=== PATIENT | female | born 1930 | race Caucasian/White ===

== ENCOUNTER 2017-01-07 10:51 | Emergency (ER) | payer MEDICARE, OTHER ==
[2017-01-07 11:42] LABS: #Eosinphils 0.3 thou/uL (0.0-0.7); #Lymphocytes 1.1 thou/uL (1.20-3.40); #Monocytes 0.5 thou/uL (0.11-0.59); #Neutrophils 4.9 thou/uL (1.40-6.50); %Basophils 0.1 % (0.0-1.0); %Eosinophils 4.2 % (0.0-10.0); %Lymphocytes 16.2 % (21.0-51.0); Hematocrit 41.2 % (36.0-47.0); Mean Platelet Volume 9.6 fL (7.4-10.4); Red Blood Cell (RBC) Count 4.11 mill/uL (4.20-5.40); White Blood Cell (WBC) Count 6.8 thou/uL (4.8-10.8)
--- NOTE | 2017-01-07 12:01 | RAD ---
CHEST 1 VIEW: HISTORY: Emergency exam. COMPARISON: Chest 1 view 11/22/16. FINDINGS: New from the comparison is a linear opacity in the peripheral right mid lung. The remainder of the lungs are clear. This opacity is similar dating back to 11/01/16 examination. There are right axillary surgical clips Mild lateral downsloping right acromion with undersurface r emodeling. IMPRESSION: Linear opacity right mid lung seen on 11/01/16 exam, although not seen on the 11/22/16 exam. This may reflect an area of atelectasis. Scarring is also within the differential. The patient did have an area of pneumonia from back in March 2016 in this area. POS: OFF
[2017-01-07 12:05] LABS: Troponin I Less than 0.010 ng/mL (< 0.028)
[2017-01-07 12:11] LABS: ALT (SGPT) 13 U/L (8-55); AST (SGOT) 24 U/L (5-34); Alkaline Phosphatase 81 U/L (40-150); Anion Gap 15 mmol/L (10-20); BUN (Urea Nitrogen) 20 mg/dL (9.8-20.1); CK (CPK) 42 U/L (29-168); Calc. Creatinine Clearance 0 mL/min (70-130); Calcium 9.6 mg/dL (7.8-10.44); Carbon Dioxide 22 mmol/L (23-31); Chloride 105 mmol/L (98-107); Estimated GFR-MDRD 60; Globulin 3.2 g/dL (2.4-3.5); Protein, Total 7.1 g/dL (6.0-8.3)
== END 2017-01-07 14:35 | disposition home or self-care (01) ==
LOC: ERS 10:51
DX: I95.9 Hypotension, unspecified (principal); I10 Essential (primary) hypertension; I48.91 Unspecified atrial fibrillation; F31.9 Bipolar disorder, unspecified; Z79.899 Other long term (current) drug therapy
CPT/HCPCS: 71010; 80053; 82553; 83880; 84484; 85025; 93005; 94760; 96360; 96361

== ENCOUNTER 2017-03-26 18:47 | Emergency (ER) | payer MEDICARE, OTHER ==
[2017-03-26] MEDS ORDERED: Adacel (T-DAP) 0.5 ML VIAL ONE (20:12)
[2017-03-26] MEDS ORDERED: Acetaminophen 325 MG TAB ONE (20:12)
[2017-03-26] MEDS ORDERED: Lidocaine 1% w/Epinephrine 1:100K 20 ML VIAL ONE (20:14)
[2017-03-26 20:16] LABS: Bilirubin Negative (Negative); Blood, Urine Trace (Negative); Glucose, Urine (Dipstick) Negative (Negative); Ketone, Urine Negative (Negative); Nitrite Positive (Negative); Protein, Urine (Dipstick) 30 mg/dL (Neg-Trace); Urobilinogen 0.2 mg/dL (0.2-1.0)
[2017-03-26 20:17] LABS: Bacteria/HPF 3+ HPF (None Seen); Hyaline Casts/LPF 0-3 HYALINE CAST LPF (0-3 Hyaline); RBC/HPF 0-3 HPF (0-3); Squamous Epithelial 0-3 HPF (0-3)
--- NOTE | 2017-03-26 20:35 | CT ---
CT OF BRAIN PERFORMED WITHOUT CONTRAST ENHANCEMENT: 03/26/17 HISTORY: Fall with head injury. Laceration in right eyebrow region. COMPARISON: 08/05/16 exam. There is mild ventricular and sulcal prominence. There is no signs of intracerebral hemorrhage or ext ra-axial fluid collections. The mastoid air cells and visualized sinuses are clear. A right frontal s calp laceration is noted. IMPRESSION: No acute intracranial abnormalities. POS: [facility]
[2017-03-26] MEDS ORDERED: Bacitracin Zinc 1 Packet ONE (22:09)
== END 2017-03-26 22:16 | disposition home or self-care (01) ==
LOC: ERS 18:47
DX: S01.81XA Laceration without foreign body of other part of head, initial encounter (principal); N39.0 Urinary tract infection, site not specified; F31.9 Bipolar disorder, unspecified; W01.0XXA Fall on same level from slipping, tripping and stumbling without subsequent striking against object, initial encounter
CPT/HCPCS: 12013; 70450; 81003; 81015; 90471; 90715; J2001

== ENCOUNTER 2017-09-02 08:31 | Outpatient (CLI) | payer MEDICARE, OTHER | END 2017-09-02 08:32 | disposition home or self-care (01) | LOC: BICMAMMO 08:31 | PROVIDERS: ATTEND Internal Medicine Hematology & Oncology | DX: C50.111 Malignant neoplasm of central portion of right female breast (principal); M85.859 Other specified disorders of bone density and structure, unspecified thigh; Z85.3 Personal history of malignant neoplasm of breast | CPT/HCPCS: 77066; 77080; G0279 ==

== ENCOUNTER 2017-12-19 19:51 | Emergency (ER) | payer MEDICARE, OTHER ==
[2017-12-19 21:32] LABS: #Eosinphils 0.3 thou/uL (0.0-0.7); #Lymphocytes 1.2 thou/uL (1.20-3.40); #Monocytes 0.5 thou/uL (0.11-0.59); %Basophils 0.2 % (0.0-1.0); %Eosinophils 6.7 % (0.0-10.0); %Lymphocytes 23.8 % (21.0-51.0); %Monocytes 9.5 % (0.0-10.0); %Neutrophils 59.9 % (42.0-75.0); Hemoglobin 12.4 g/dL (12.0-16.0); Mean Corpuscular HGB CONC 33.1 g/dL (32.0-36.0); Mean Corpuscular Hemoglobin 32.5 pg (27.0-31.0); Mean Corpuscular Volume 98.1 fL (78.0-98.0); Mean Platelet Volume 8.6 fL (7.4-10.4); Platelet Count 218 thou/uL (130-400); RBC Distribution Width 11.5 % (11.5-14.5); Red Blood Cell (RBC) Count 3.82 mill/uL (4.20-5.40)
[2017-12-19 21:51] LABS: ALT (SGPT) 20 U/L (8-55); AST (SGOT) 19 U/L (5-34); Albumin 3.8 g/dL (3.4-4.8); Alkaline Phosphatase 75 U/L (40-150); Anion Gap 9 mmol/L (10-20); BUN (Urea Nitrogen) 23 mg/dL (9.8-20.1); Bilirubin, Total 0.6 mg/dL (0.2-1.2); CK (CPK) 61 U/L (29-168); Calc. Creatinine Clearance 0 mL/min (70-130); Calcium 9.3 mg/dL (7.8-10.44); Carbon Dioxide 30 mmol/L (23-31); Chloride 107 mmol/L (98-107); Estimated GFR-MDRD 58; Globulin 2.4 g/dL (2.4-3.5); Glucose 100 mg/dL (83-110); Potassium 4.7 mmol/L (3.5-5.1); Protein, Total 6.2 g/dL (6.0-8.3); Sodium 141 mmol/L (136-145)
[2017-12-19 21:56] LABS: CKMB 1.2 ng/mL (0-6.6); Troponin I Less than 0.010 ng/mL (< 0.028)
[2017-12-19 21:56] LABS: Bilirubin Negative (Negative); Blood, Urine Trace (Negative); Clarity CLEAR (Clear); Glucose, Urine (Dipstick) Negative (Negative); Leukocyte Negative (Negative); Nitrite Negative (Negative); Protein, Urine (Dipstick) Negative (Neg-Trace); Specific Gravity, Urine 1.014 (1.002-1.036); Urobilinogen 0.2 mg/dL (0.2-1.0); pH, Urine 5.5 (5.0-9.0)
[2017-12-19 21:58] LABS: Bacteria/HPF None Seen HPF (None Seen); Hyaline Casts/LPF 0-3 HYALINE CAST LPF (0-3 Hyaline); Pathc Cast-AUWi Flag 0.29 (0-2.49); Squamous Epithelial 0-3 HPF (0-3)
== END 2017-12-19 22:45 | disposition home or self-care (01) ==
LOC: ERS 19:51
DX: R53.81 Other malaise (principal); I10 Essential (primary) hypertension; I48.91 Unspecified atrial fibrillation; F31.9 Bipolar disorder, unspecified; Z79.899 Other long term (current) drug therapy
CPT/HCPCS: 36415; 80053; 81003; 81015; 82550; 82553; 84484; 85025; 87086; 93005

== ENCOUNTER 2018-09-08 09:36 | Outpatient (CLI) | payer MEDICARE, OTHER ==
--- NOTE | 2018-09-08 10:36 | MMO ---
Bilateral MAMMO Bilat Diag DDI+JUDY. CLINICAL HISTORY: Patient is 88 years old and is seen for diagnostic exam. The patient has no family history of breast cancer. The patient has a history of Segmental Mastectomy procedure revealed invasive carcinoma. in the right breast in August,; Re-Excision procedure revealed ductal carcinoma in situ. 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 The patient has a history of right Lumpectomy in August, - malignant, right Ultrasound Guided Core Biopsy in Jul, 2014 and left Excisional Biopsy in ? - benign. VIEWS: The views performed were: bilateral craniocaudal with tomosynthesis; bilateral mediolateral oblique with tomosynthesis; bilateral mediolateral; and right exaggerated craniocaudal. FILMS COMPARED: The present examination has been compared to prior imaging studies performed at [facility] on 12/02/2015, 08/03/2016, 09/02/2017 and 09/08/2018. MAMMOGRAM FINDINGS: There are scattered fibroglandular densities. Finding 1: There are stable post operative changes seen in the right breast. Finding 2: There are stable benign appearing calcifications seen in both breasts. There are also vascular calcifications. Finding 3: There are no mammographic or sonographic abnormalities in the area of palpable concern. The patient is referred back to her clinician. Negative imaging findings should not preclude biopsy if clinical findings are suspicious. IMPRESSION: FINDING 3: THERE ARE NO MAMMOGRAPHIC ABNORMALITIES IN THE AREA OF PALPABLE CONCERN. THE PATIENT IS REFERRED BACK TO HER CLINICIAN. NEGATIVE IMAGING FINDINGS SHOULD NOT PRECLUDE BIOPSY IF CLINICAL FINDINGS ARE SUSPICIOUS. A ROUTINE FOLLOW-UP MAMMOGRAM IN 1 YEAR IS RECOMMENDED. ANY DECISION TO BIOPSY SHOULD BE BASED ON CLINICAL ASSESSMENT. THE RESULTS OF THIS EXAM WERE SENT TO THE PATIENT. ACR BI-RADS Category 2 - Benign finding MAMMOGRAPHY NOTE: 1. A negative mammogram report should not delay a biopsy if a dominant of clinically suspicious mass is present. 2. Approximately 10% to 15% of breast cancers are not detected by mammography. 3. Adenosis and dense breasts may obscure an underlying neoplasm.
--- NOTE | 2018-09-08 11:38 | ULT ---
LIMITED RIGHT BREAST ULTRASOUND: Date: 09/08/18 PROVIDED CLINICAL HISTORY: Right breast palpable abnormality. FINDINGS: Limited sonographic interrogation was performed of the right breast in the region of palpable concern . The sonographic appearance of the breast tissue in this region is normal. IMPRESSION: No mammographic or sonographic abnormalities are present in the region of palpable concern. Negative imaging findings should not preclude further evaluation of a clinically suspicious finding. The patie nt is referred back to her clinician. BI-RADS Category 2 - Benign findings. POS: OFF
== END 2018-09-08 09:37 | disposition home or self-care (01) ==
LOC: BICMAMMO 09:36
PROVIDERS: ATTEND Internal Medicine Hematology & Oncology
DX: C50.111 Malignant neoplasm of central portion of right female breast (principal)
CPT/HCPCS: 76642; 77066; G0279

== ENCOUNTER 2018-09-22 15:24 | Observation (INO) | payer MEDICARE, OTHER ==
[2018-09-22 16:07] LABS: #Eosinphils 0.3 thou/uL (0.0-0.7); #Lymphocytes 1.2 thou/uL (1.20-3.40); #Monocytes 0.7 thou/uL (0.11-0.59); #Neutrophils 5.2 thou/uL (1.40-6.50); %Basophils 0.1 % (0.0-1.0); %Eosinophils 4.3 % (0.0-10.0); %Lymphocytes 16.6 % (21.0-51.0); %Monocytes 8.9 % (0.0-10.0); %Neutrophils 70.1 % (42.0-75.0); Hemoglobin 13.3 g/dL (12.0-16.0); Mean Corpuscular HGB CONC 33.4 g/dL (32.0-36.0); Mean Corpuscular Hemoglobin 32.9 pg (27.0-31.0); Mean Corpuscular Volume 98.7 fL (78.0-98.0); Platelet Count 225 thou/uL (130-400); RBC Distribution Width 11.4 % (11.5-14.5); Red Blood Cell (RBC) Count 4.03 mill/uL (4.20-5.40); White Blood Cell (WBC) Count 7.4 thou/uL (4.8-10.8)
--- NOTE | 2018-09-22 16:19 | RAD ---
EXAM: Single view of the chest HISTORY: Atrial flutter with chest pain COMPARISON: 09/09/2018 FINDINGS: Single view of the chest shows a normal sized cardiomediastinal silhouette. Atelectasis is seen in the mid right lung. There is no evidence of consolidation, mass, or pleural effusion. The bones are unremarkable. IMPRESSION: No evidence of acute cardiopulmonary disease
[2018-09-22 16:29] LABS: ALT (SGPT) 13 U/L (8-55); AST (SGOT) 14 U/L (5-34); Albumin 4.4 g/dL (3.4-4.8); Alkaline Phosphatase 81 U/L (40-150); Anion Gap 13 mmol/L (10-20); BUN (Urea Nitrogen) 20 mg/dL (9.8-20.1); Bilirubin, Total 0.8 mg/dL (0.2-1.2); Calc. Creatinine Clearance 0 mL/min (70-130); Carbon Dioxide 27 mmol/L (23-31); Chloride 102 mmol/L (98-107); Estimated GFR-MDRD 51; Globulin 2.4 g/dL (2.4-3.5); Glucose 121 mg/dL (83-110); Potassium 4.3 mmol/L (3.5-5.1); Protein, Total 6.8 g/dL (6.0-8.3); Sodium 138 mmol/L (136-145)
[2018-09-22 17:59] LABS: Bilirubin Negative (Negative); Blood, Urine Large (Negative); Clarity CLEAR (Clear); Glucose, Urine (Dipstick) Negative (Negative); Leukocyte Trace (Negative); Nitrite Negative (Negative); Protein, Urine (Dipstick) Negative (Neg-Trace); Specific Gravity, Urine 1.007 (1.002-1.036); Urobilinogen 0.2 mg/dL (0.2-1.0)
[2018-09-22 18:02] LABS: Bacteria/HPF None Seen HPF (None Seen); Hyaline Casts/LPF 0-3 HYALINE CAST LPF (0-3 Hyaline); RBC/HPF 0-3 HPF (0-3); Squamous Epithelial None Seen HPF (0-3); WBC/HPF 0-3 HPF (0-3)
--- NOTE | 2018-09-22 18:30 | PDOC.FPRHP ---
- History of Present Illness Chief Complaint: Wobbly History of Present Illness: This is an 88 yo female with a pmh of atrial fibrillation who presents to the ER from the clinic with a cc of feeling wobbly and dizzy. Pt reports she was seen at the clinic be cause she was feeling weak and tired. She reports feeling wobbly and dizzy. She also reports knee pain. She denies SOB but reports when she breaths she feels heavy. She reports she felt palpitations one day this week. She states her symptoms started 2 days ago. Currently she denies dizziness , weakness, SOB, palpitations, or fatigue. ED Course: None - Allergies/Adverse Reactions Allergies Allergy/AdvReac Type Severity Reaction Status Date / Time No Known Drug Allergies Allergy Verified 09/12/15 13:42 - Home Medications Medication Instructions Recorded Confirmed Type Apixaban [Eliquis] 2.5 mg PO BID 09/14/15 09/22/18 History Anastrozole 1 mg PO DAILY 03/21/16 09/22/18 History Rosuvastatin Calcium 10 mg PO HS 03/21/16 09/22/18 History QUEtiapine Fumarate [SEROquel] 50 mg PO DAILY tab 03/22/16 09/22/18 Rx Amiodarone [Cordarone] 400 mg PO BID 09/22/18 09/22/18 History - History PMHx: Afib, HTN, breast cancer PSHx: Lumpectomy right breast, appendectomy, hysterectomy FHx: noncontributory Social: Denies RAMANDEEP - Review of Systems General: reports: fatigue. denies: fever/chills, weight/appetite/sleep changes Eyes: denies: eye pain, vision changes ENT: denies: nasal congestion, rhinorrhea Respiratory: denies: cough, congestion, shortness of breath, exercise intolerance Cardiovascular: reports: palpitation. denies: chest pain, edema Gastrointestinal: denies: nausea, vomiting, diarrhea, constipation, abdominal pain Genitourinary: denies: incontinence, dysuria Skin: denies: rashes, lesions Musculoskeletal: denies: pain, tenderness Neurological: reports: weakness (generalized and wobbly). denies: numbness, syncope, seizure Psychological: denies: anxiety, depression - Vital signs BP: 106/75 HR: 78 RR: 20 Tmax: 98.4 Pox: 98% on ra Wt: 78 kg - Physical Exam Constitutional: NAD, awake, alert and oriented, well developed HEENT: normocephalic and atraumatic, PERRLA, EOMI, TM's clear and intact, MMM Neck: supple, trachea midline, no JVD Chest: no-tender to palpation, no lesions Heart: normal S1/S2, pulses present, other (Regular rate, irregular rhythm) Lungs: CTAB, no respiratory distress, good air movement, no rales/rhonchi Abdomen: soft, non-tender, bowel sounds present, no masses/distention Musculoskeletal: normal structure, normal tone, ROM grossly normal Neurological: no focal deficit, CN II-XII intact Skin: capillary refill <2 seconds, no jaundice Heme/Lymphatic: no unusual bruising or bleeding Psychiatric: normal mood and affect, intact recent and remote memory FMR H&P: Results - Labs Result Diagrams: 09/22/18 16:00 09/22/18 16:00 Lab results: WBC 7.4 thou/uL (4.8-10.8) 09/22/18 16:00 Hgb 13.3 g/dL (12.0-16.0) 09/22/18 16:00 Hct 39.8 % (36.0-47.0) 09/22/18 16:00 MCV 98.7 fL (78.0-98.0) H 09/22/18 16:00 Plt Count 225 thou/uL (130-400) 09/22/18 16:00 Neutrophils % 70.1 % (42.0-75.0) 09/22/18 16:00 Sodium 138 mmol/L (136-145) 09/22/18 16:00 Potassium 4.3 mmol/L (3.5-5.1) 09/22/18 16:00 Chloride 102 mmol/L (98-107) 09/22/18 16:00 Carbon Dioxide 27 mmol/L (23-31) 09/22/18 16:00 BUN 20 mg/dL (9.8-20.1) 09/22/18 16:00 Creatinine 1.02 mg/dL (0.6-1.1) 09/22/18 16:00 Glucose 121 mg/dL (83-110) H 09/22/18 16:00 Calcium 10.0 mg/dL (7.8-10.44) 09/22/18 16:00 Total Bilirubin 0.8 mg/dL (0.2-1.2) 09/22/18 16:00 AST 14 U/L (5-34) 09/22/18 16:00 ALT 13 U/L (8-55) 09/22/18 16:00 Alkaline Phosphatase 81 U/L (40-150) 09/22/18 16:00 B-Natriuretic Peptide 133.4 pg/mL (0-100) H 09/22/18 16:00 Serum Total Protein 6.8 g/dL (6.0-8.3) 09/22/18 16:00 Albumin 4.4 g/dL (3.4-4.8) 09/22/18 16:00 Urine Ketones Negative mg/dL (Negative) 09/22/18 17:35 Urine Blood Large (Negative) H 09/22/18 17:35 Urine Nitrite Negative (Negative) 09/22/18 17:35 Ur Leukocyte Esterase Trace (Negative) H 09/22/18 17:35 Urine RBC 0-3 HPF (0-3) 09/22/18 17:35 Urine WBC 0-3 HPF (0-3) 09/22/18 17:35 Ur Squamous Epith Cells None Seen HPF (0-3) 09/22/18 17:35 Urine Bacteria None Seen HPF (None Seen) 09/22/18 17:35 - EKG Interpretation EKG: Afib at 92 bpm, - Radiology Interpretation Chest x-ray Status: report reviewed by me (No acute cardio pulmonary disease) FMR H&P: A/P - Problem List (1) CKD (chronic kidney disease) stage 3, GFR 30-59 ml/min Current Visit: Yes Status: Acute Code(s): N18.3 - CHRONIC KIDNEY DISEASE, STAGE 3 (MODERATE) (2) Atrial fibrillation Current Visit: No Status: Acute Code(s): I48.91 - UNSPECIFIED ATRIAL FIBRILLATION Qualifiers: Atrial fibrillation type: chronic Qualified Code(s): I48.2 - Chronic atrial fibrillation (3) Bipolar disorder Current Visit: No Status: Chronic Code(s): F31.9 - BIPOLAR DISORDER, UNSPECIFIED Qualifiers: Active/Remission status: in remission of unspecified degree Qualified Code( s): F31.70 - Bipolar disorder, currently in remission, most recent episode unspecified (4) Hyperlipidemia Current Visit: No Status: Chronic Code(s): E78.5 - HYPERLIPIDEMIA, UNSPECIFIED Qualifiers: Hyperlipidemia type: unspecified Qualified Code(s): E78.5 - Hyperlipidemia , unspecified - Plan This is a 88 yo female with a pmh of Bipolar disorder, HTN, HLD, afib, HFpEF Weakness/wobbly likely 2/2 atrial fibrilation vs. aflutter -Admit to tele obs -Clinic reports EKG showing atrial flutter with variable AV conduction block and a rate of 98, ER EKG shows afib with a rate of 92 -Dr. Dominguez has been consulted, will appreciate recommendations -Continue home amiodarone and eliquis -S/P IMELDA with cardioconversion on 09/11/18 HFpEF -Echo on 09/09/18 shows LVEF of 60-65% with filling defect CKD 3 -Appears baseline, cr of 0.94 in June Bipolar -Continue home seroquel HLD -Continue home rosuvastatin Code: Full Prophylaxis: [place] Family: None at bedside Diet: HH Fluids: SL Disposition: DC in 1-2 days PCP: Dr. Chavez, [facility] FMR H&P: Upper Level - Pertinent history 88F with history of afib presents with 2-3 days of palpitation. She was hospitalized this month, found to be in a fib, had both chemical and electrical cardioversion and dc home with amiodarone and elliquis. She developed palpitation 2-3 days ago. There was no known inciting event and she endorse taking all her medication appropriately. Associated with fatigue, loss of balance, and sensation of heaviness in chest. She was evaluated today in her PCP 's office and found to be in atrial flutter. Currently in ER, she is found to be in atrial fib on EKG, rate controlled. She endorse continue symptomatic palpitations. Gen: Alert, oriented HEENT: Diminished hearing, vision grossly intact, normocephalic, midline trachea CV: Irregular rhythm. No m/g/r heard Resp: CTA bilat GI: Soft, normoactive, not tender to palpation Ext: No pitting edema Neuro: AOx3, no focal deficit 1. Atrial Fibrillation, rate controlled - Etiology likely due to age. Recent echo shows appropriate EF, mild atrial dilation. TSH was normal range. Trop negative. BNP low indeterminate value. - Recurred despite amiodarone and cardioversion. - Will consult Cardiology, followed by likely EP consult. Continue amiodarone and elliquis. - In future, if RVR develop, will consider starting on dilt drip. 2. HLD - Chronic issue. Continue crestor. 3. Hx of rt breast cancer - Known issue. Continue anastrozole. 4. Bipolar, NOS - Known chronic disorder. Continue home seroquel. 5. CKD 3 - At baseline. - Plan Date/Time: 09/22/181822 I, [Elbert Coleman], have evaluated this patient and agree with findings/plan as outlined by chemistry intern resident. Pertinent changes/additions are listed here. Addendum - Attending - Attending Attestation Date/Time: 09/22/182239 I personally evaluated the patient and discussed the management with Dr. Marquez /[place]. I agree with the History, Examination, Assessment and Plan documented above with any addition or exceptions noted below. Patient with recent diagnosis of Afib here with increasing weakness generalized and feelings of palpitations. She had cardioversion and was placed on Amiodarone. On exam, no major abnormalities. EKG shows rate controlled afib. Labs do not reveal ACS or current concern for CHF or demand ischemia. Patient will be admitted for Afib and weakness. Will discuss case with cardiology in AM whether she would benefit from pacemaker with beta blockade or beta blockade alone. Continue OAC. PT as needed. Continue current chronic meds for chronic conditions. Guadalupe Andrew MD, MS
[2018-09-22 19:20] LABS: Troponin I Less than 0.010 ng/mL (< 0.028)
[2018-09-22] MEDS ORDERED: Acetaminophen 650 MG Suppository PR PRN (21:15)
[2018-09-22] MEDS ORDERED: Acetaminophen 325 MG TAB PO PRN (21:15)
[2018-09-22] MEDS ORDERED: Ondansetron PF 4 MG/2 ML Vial IVP PRN (21:15)
[2018-09-22] MEDS ORDERED: Ondansetron ODT 4 MG TAB PO PRN (21:15)
[2018-09-22] MEDS ORDERED: Apixaban 2.5 MG TAB PO SCH (21:30)
[2018-09-22] MEDS ORDERED: Rosuvastatin 10 MG TAB PO SCH (21:30)
[2018-09-22 21:43] LABS: INR-International Normal Ratio 1.2; PTT 30.3 SEC (22.9-36.1); Prothrombin Time 14.8 SEC (12.0-14.7)
[2018-09-22 22:31] LABS: Troponin I Less than 0.010 ng/mL (< 0.028)
[2018-09-23 03:41] LABS: #Basophils 0.1 thou/uL (0.0-0.2); #Eosinphils 0.5 thou/uL (0.0-0.7); #Lymphocytes 1.4 thou/uL (1.20-3.40); #Monocytes 0.6 thou/uL (0.11-0.59); #Neutrophils 4.9 thou/uL (1.40-6.50); %Basophils 0.7 % (0.0-1.0); %Eosinophils 6.4 % (0.0-10.0); %Lymphocytes 19.1 % (21.0-51.0); %Monocytes 8.6 % (0.0-10.0); %Neutrophils 65.3 % (42.0-75.0); Hemoglobin 12.5 g/dL (12.0-16.0); Mean Corpuscular HGB CONC 34.2 g/dL (32.0-36.0); Mean Corpuscular Hemoglobin 33.6 pg (27.0-31.0); Mean Corpuscular Volume 98.3 fL (78.0-98.0); Mean Platelet Volume 9.1 fL (7.4-10.4); Platelet Count 204 thou/uL (130-400); RBC Distribution Width 11.4 % (11.5-14.5); Red Blood Cell (RBC) Count 3.71 mill/uL (4.20-5.40); White Blood Cell (WBC) Count 7.5 thou/uL (4.8-10.8)
--- NOTE | 2018-09-23 06:33 | PDOC.FM ---
- Subjective Subjective: NAEO. Patient is resting comfortably in bed. Patient denies any chest pain or palpitations. Denies feeling wobbly or dizzy. Patient is feeling anxious about her condition and if she will need another procedure. - Objective MAR Reviewed: Yes Vital Signs & Weight: Vital Signs (12 hours) Temp Pulse Resp BP Pulse Ox 09/22/18 22:40 98.4 F 81 19 147/76 H 97 Result Diagrams: 09/23/18 03:28 09/22/18 16:00 Phys Exam - Physical Examination Constitutional: NAD elderly female HEENT: PERRLA, moist MMs Neck: supple, full ROM Respiratory: clear to auscultation bilateral irregularly irregular Gastrointestinal: soft, non-tender, no distention Musculoskeletal: pulses present Neurological: non-focal, moves all 4 limbs Psychiatric: normal affect, A&O x 3 Skin: no rash, normal turgor, cap refill <2 seconds Dx/Plan (1) CKD (chronic kidney disease) stage 3, GFR 30-59 ml/min Code(s): N18.3 - CHRONIC KIDNEY DISEASE, STAGE 3 (MODERATE) Status: Acute (2) Atrial fibrillation Code(s): I48.91 - UNSPECIFIED ATRIAL FIBRILLATION Status: Acute Qualifiers: Atrial fibrillation type: chronic Qualified Code(s): I48.2 - Chronic atrial fibrillation (3) Bipolar disorder Code(s): F31.9 - BIPOLAR DISORDER, UNSPECIFIED Status: Chronic Qualifiers: Active/Remission status: in remission of unspecified degree Qualified Code( s): F31.70 - Bipolar disorder, currently in remission, most recent episode unspecified (4) Hyperlipidemia Code(s): E78.5 - HYPERLIPIDEMIA, UNSPECIFIED Status: Chronic Qualifiers: Hyperlipidemia type: unspecified Qualified Code(s): E78.5 - Hyperlipidemia , unspecified - Plan Plan: This is a 88 yo female with a pmh of Bipolar disorder, HTN, HLD, afib, HFpEF Atrial fibrillation, rate controlled Clinic reports EKG showing atrial flutter with variable AV conduction block and a rate of 98, ER EKG shows afib with a rate of 92. Patient s/p IMELDA w/ cardioversion on 09/11/18. - Dr. Dominguez has been consulted, will appreciate recommendations. Will likely need to consult EP due to continued afib. - Continue home amiodarone and eliquis HFpEF - Echo on 09/09/18 shows LVEF of 60-65% with filling defect - No signs/symptoms of fluid overload. CXR showing no acute process. CKD 3 - Appears baseline, Cr of 0.94 in June - Continue to monitor Bipolar - Continue home Seroquel, stable. HLD - Continue home Rosuvastatin Code: Full Prophylaxis: Eliquis Family: None at bedside Diet: HH Fluids: SL Disposition: DC in 1-2 days PCP: TANA Gomez Addendum - Attending - Attending Attestation Date/Time: 09/23/18 1201 I personally evaluated the patient and discussed the management with Dr. Rosas. I agree with the History, Examination, Assessment and Plan documented above with any addition or exceptions noted below.
[2018-09-23] MEDS ORDERED: Apixaban 2.5 MG TAB PO SCH (09:00)
[2018-09-23 12:24] VITALS: BMI 27.5
[2018-09-23] MEDS: Anastrozole 1 MG TAB PO SCH (13:21)
[2018-09-23] MEDS: Amiodarone 200 MG TAB PO SCH ×2 (13:22→20:48)
[2018-09-23] MEDS ORDERED: Apixaban 5 MG TAB PO SCH (14:45)
--- NOTE | 2018-09-23 15:43 | CON ---
DATE OF CONSULTATION: HISTORY OF PRESENT ILLNESS: The patient is a pleasant 88-year-old woman with a history of atrial fibrillation, who presents with weakness. The patient has previously had atrial fibrillation. She has been treated with flecainide for several years. The patient presents once again. The patient was recently admitted a week ago with atrial fibrillation. She underwent IMELDA/cardioversion. The patient presents once again with increasing weakness. She denies having any palpitations. PAST MEDICAL HISTORY: Significant for; 1. Atrial fibrillation. 2. Hypertension. 3. Bipolar disorder. 4. Breast carcinoma. PAST SURGICAL HISTORY: 1. Breast surgery. 2. Cholecystectomy. 3. Appendectomy. 4. Tonsillectomy. 5. Hysterectomy. SOCIAL HISTORY: Nonsmoker. FAMILY HISTORY: No strong family history of heart disease. MEDICATIONS ON ADMISSION: Included; 1. Amiodarone 400 b.i.d. 2. Crestor 10 nightly. 3. Eliquis 2.5 b.i.d. 4. Seroquel 50 daily. REVIEW OF SYSTEMS: A 10-point system otherwise unremarkable. No history of easy bruising or bleeding. PHYSICAL EXAMINATION: GENERAL: Obese woman, in no acute distress. VITAL SIGNS: Blood pressure 122/61. NECK: No jugular venous distention. LUNGS: Clear to auscultation. HEART: Regular rate and rhythm. Normal S1 and S2. No murmurs. ABDOMEN: Nondistended. EXTREMITIES: No edema. VASCULAR: Radial pulses are 2+. LABORATORY DATA: Sodium 138, potassium 4.3, chloride 102, bicarbonate 27, BUN 20, creatinine 1.0, and glucose 121. Troponin less than 0.01. Her white blood cell count 7.5, hemoglobin 12.5, hematocrit 36.5, and platelets were 204. Her EKG revealed her to have atrial fibrillation with a slow ventricular response. IMPRESSION: 1. Paroxysmal atrial fibrillation. 2. Hypertension. 3. Breast carcinoma. This patient presents with recurrent atrial fibrillation. We would recommend repeat IMELDA cardioversion. The risks have been explained to the patient, who wishes to proceed. PLAN: Repeat cardioversion. Job ID: [id number]
[2018-09-23] MEDS: Apixaban 5 MG TAB PO SCH (20:48)
[2018-09-23] MEDS ORDERED: Rosuvastatin 10 MG TAB PO SCH (21:00)
--- NOTE | 2018-09-24 06:31 | PDOC.FM ---
- Subjective Subjective: NAEO. Per nursing patient did well overnight, no issues. Patient remained rate controlled, afib overnight. Patient was taken back this morning for cardioversion. Dr. Dominguez states that the cardioversion went well this morning with no complications. Patient was still not back in her room during rounds and we were therefore unable to ask any questions to the patient. - Objective MAR Reviewed: Yes Vital Signs & Weight: Vital Signs (12 hours) Temp Pulse Resp BP Pulse Ox 09/24/18 03:56 98.4 F 70 17 123/66 95 09/23/18 19:29 98.4 F 70 16 117/63 93 L Weight Weight 77.337 kg I&O: 09/22/18 09/23/18 09/24/18 06:59 06:59 06:59 Intake Total 1270 Output Total 1500 Balance -230 Result Diagrams: 09/23/18 03:28 09/22/18 16:00 Phys Exam - Physical Examination irregularly, irregular Dx/Plan (1) CKD (chronic kidney disease) stage 3, GFR 30-59 ml/min Code(s): N18.3 - CHRONIC KIDNEY DISEASE, STAGE 3 (MODERATE) Status: Acute (2) Atrial fibrillation Code(s): I48.91 - UNSPECIFIED ATRIAL FIBRILLATION Status: Acute Qualifiers: Atrial fibrillation type: chronic Qualified Code(s): I48.2 - Chronic atrial fibrillation (3) Bipolar disorder Code(s): F31.9 - BIPOLAR DISORDER, UNSPECIFIED Status: Chronic Qualifiers: Active/Remission status: in remission of unspecified degree Qualified Code( s): F31.70 - Bipolar disorder, currently in remission, most recent episode unspecified (4) Hyperlipidemia Code(s): E78.5 - HYPERLIPIDEMIA, UNSPECIFIED Status: Chronic Qualifiers: Hyperlipidemia type: unspecified Qualified Code(s): E78.5 - Hyperlipidemia , unspecified - Plan Plan: This is a 88 yo female with a pmh of Bipolar disorder, HTN, HLD, afib, HFpEF Atrial fibrillation, rate controlled Clinic reports EKG showing atrial flutter with variable AV conduction block and a rate of 98, ER EKG shows afib with a rate of 92. Patient s/p IMELDA w/ cardioversion on 09/11/18. - Dr. Dominguez has been consulted, appreciate recommendations. IMELDA w/ cardioversion today. Cards states procedure went home. Possibly home later today if patient in NSR and doing well. - Continue home amiodarone and eliquis HFpEF - Echo on 09/09/18 shows LVEF of 60-65% with filling defect - No signs/symptoms of fluid overload. CXR showing no acute process. CKD 3 - Appears baseline, Cr of 0.94 in June - Continue to monitor Bipolar - Continue home Seroquel, stable. HLD - Continue home Rosuvastatin Code: Full Prophylaxis: Eliquis Family: None at bedside Diet: HH Fluids: SL Disposition: cardioversion today, dc pending clinical course PCP: TANA oGmez Addendum - Attending - Attending Attestation Date/Time: 09/24/18 1220 I personally evaluated the patient and discussed the management with Dr. Rosas. I agree with the History, Examination, Assessment and Plan documented above with any addition or exceptions noted below.
[2018-09-24] MEDS ORDERED: PROPOFOL 20 ML ONE (08:12)
--- NOTE | 2018-09-24 10:42 | OP ---
DATE OF PROCEDURE: 09/24/2018 PROCEDURE PERFORMED: Transesophageal echocardiogram. INDICATION: An 88-year-old woman with paroxysmal atrial fibrillation on transesophageal echocardiogram. DESCRIPTION OF PROCEDURE: The patient was taken to the PACU. The patient was sedated by Anesthesiology. A transesophageal probe was placed into the distal esophagus and stomach. Echocardiographic images were obtained. The transesophageal probe was removed. FINDINGS: 1. Normal left ventricular systolic function. 2. Biatrial enlargement. 3. Mild mitral valve prolapse. 4. Wcmxjoqe-gr-zybikm mitral regurgitation. 5. Ojpt-mr-gstxeoqu tricuspid regurgitation. 6. Trivial aortic regurgitation. 7. No thrombus noted in the left atrium, left atrial appendage. 8. Atherosclerotic debris in the descending aorta. IMPRESSION: No formed thrombus in the left atrium and left atrial appendage. Job ID: [id number]
--- NOTE | 2018-09-24 10:42 | OP ---
DATE OF PROCEDURE: 09/24/2018 PROCEDURE PERFORMED: Electrocardioversion. INDICATION FOR PROCEDURE: An 88-year-old woman with paroxysmal atrial fibrillation. DESCRIPTION OF PROCEDURE: The patient was taken to the PACU. The patient was sedated by Anesthesiology. The patient was shocked with 200 joules of synchronized electricity. The patient converted to normal sinus rhythm. IMPRESSION: Successful electrocardioversion. Job ID: [id number]
[2018-09-24] MEDS: Amiodarone 200 MG TAB PO SCH (10:47)
[2018-09-24] MEDS: Apixaban 5 MG TAB PO SCH (10:47)
[2018-09-24] MEDS: Anastrozole 1 MG TAB PO SCH (10:47)
[2018-09-24 16:19] VITALS: BP 119/56; TEMP 98.1
--- NOTE | 2018-09-25 05:41 | DIS ---
DATE OF ADMISSION: 09/22/2018 DATE OF DISCHARGE: 09/24/2018 RESIDENT: Taryn Rosas MD ADMITTING ATTENDING: DR. MARCELO ODONNELL DISCHARGE ATTENDING: DR. KALIE LIMON CONSULTS: Cardiology, Dr. Dominguez and Walking Program. PROCEDURES: Transesophageal echocardiogram with cardioversion on 09/24/2018. PRIMARY DIAGNOSIS: Paroxysmal atrial fibrillation. SECONDARY DIAGNOSES: Heart failure with preserved ejection fraction, CKD stage 3, bipolar, hyperlipidemia. DISCHARGE MEDICATIONS: 1. Eliquis 2.5 mg oral twice a day. 2. Anastrozole 1 mg oral daily. 3. Rosuvastatin 10 mg oral at bedtime. 4. Seroquel 50 mg oral daily. 5. Amiodarone 400 mg oral twice daily. DISCONTINUED MEDICATIONS: None. HISTORY OF PRESENT ILLNESS/HOSPITAL COURSE: This is an 88-year-old female with past medical history of atrial fibrillation, who presented to the ER from her [facility] with a chief complaint of feeling wobbly and dizzy. The patient was recently discharged on 09/15/2018 after being found in atrial fibrillation and had a cardioversion on 09/11/2018. The patient reports that she was seen at the clinic because she was feeling weak and tired. The patient denied any shortness of breath, but reported that she did have some palpitations earlier in the week. The patient stated that her symptoms had began 2 days prior. In the ER, Cardiology was consulted. She was found to be in atrial fibrillation with a heart rate in the 70s to 90s. Otherwise, the patient was vitally stable. A chest x-ray was performed that showed no acute process. The patient was admitted to telemetry for further workup of her atrial fibrillation. On 09/24/2018, the patient went for IMELDA with cardioversion by Dr. Dominguez. The procedure was successful and she converted back to normal sinus rhythm. The patient had no medication changes upon discharge. DISPOSITION: Stable. DISCHARGE INSTRUCTIONS: 1. Location: Home. 2. Diet: Heart healthy. 3. Activity: Ad yamilet with fall precautions. 4. Followup: With PCP at [facility] within 1 week and follow up with Dr. Dominguez within 2 weeks. Job ID: [id number] MTDD
--- NOTE | 2018-09-26 14:04 | EKG ---
Test Reason : Blood Pressure : / mmHG Vent. Rate : 092 BPM Atrial Rate : 220 BPM P-R Int : 000 ms QRS Dur : 080 ms QT Int : 372 ms P-R-T Axes : 000 029 043 degrees QTc Int : 460 ms Atrial fibrillation with a competing junctional pacemaker Abnormal ECG Confirmed by TALON RUVALCAAB DO ([id number]), associate editor DELIO SEVILLA ([id number]) on 09/26/2018 2:04:13 PM Referred By: Confirmed By:TALON RUVALCABA DO
== END 2018-09-24 17:36 | disposition home or self-care (01) ==
LOC: ERS 15:24 → ERHOLD 18:14 → 2SW 09-23 12:10
PROVIDERS: ADMIT Student in an Organized Health Care Education/Training Program; ATTEND Student in an Organized Health Care Education/Training Program
PROC: B24BZZ4 Ultrasonography of Heart with Aorta, Transesophageal (ICD-10-PCS; principal; 2018-09-24)
PROC: 5A2204Z Restoration of Cardiac Rhythm, Single (ICD-10-PCS; 2018-09-24)
DX: I48.2 Chronic atrial fibrillation (principal); I13.0 Hypertensive heart and chronic kidney disease with heart failure and stage 1 through stage 4 chronic kidney disease, or unspecified chronic kidney disease; N18.3 Chronic kidney disease, stage 3 (moderate); I50.30 Unspecified diastolic (congestive) heart failure; F31.70 Bipolar disorder, currently in remission, most recent episode unspecified; E78.5 Hyperlipidemia, unspecified; I70.0 Atherosclerosis of aorta; I08.3 Combined rheumatic disorders of mitral, aortic and tricuspid valves; Z85.3 Personal history of malignant neoplasm of breast; Z79.01 Long term (current) use of anticoagulants; Z79.811 Long term (current) use of aromatase inhibitors; Z79.899 Other long term (current) drug therapy; Z90.11 Acquired absence of right breast and nipple
CPT/HCPCS: 71045; 80053; 83880; 84484 ×2; 85025 ×2; 85610; 85730; 92960; 93005; 93312; 97139 ×2; 99285; G0378 ×2; 36415; 81003; 81015; J2704

== ENCOUNTER 2018-10-03 21:44 | Observation (INO) | payer MEDICARE, OTHER ==
[~2018-10-03 21:44] MED LIST: ISOVUE-370 76%-LOCM 1 ML ONE
[2018-10-03 22:15] LABS: Bacteria/HPF 1+ HPF (None Seen); Bilirubin Negative (Negative); Blood, Urine 3+ (Negative); Clarity Turbid (Clear); Glucose, Urine (Dipstick) Normal (Negative); Leukocyte 25 Leu/uL (Negative); Nitrite Negative (Negative); Protein, Urine (Dipstick) 50 mg/dL (Neg-Trace); RBC/HPF Greater than 50 HPF (0-3); Squamous Epithelial 0-3 HPF (0-3); Urobilinogen Normal mg/dL (Less than 2); WBC/HPF Greater than 50 HPF (0-3)
[2018-10-03 22:27] LABS: #Eosinphils 0.3 thou/uL (0.0-0.7); #Lymphocytes 1.2 thou/uL (1.20-3.40); #Monocytes 0.7 thou/uL (0.11-0.59); #Neutrophils 5.4 thou/uL (1.40-6.50); %Basophils 0.4 % (0.0-1.0); %Eosinophils 3.7 % (0.0-10.0); %Lymphocytes 16.4 % (21.0-51.0); %Monocytes 8.6 % (0.0-10.0); %Neutrophils 70.9 % (42.0-75.0); Hemoglobin 12.3 g/dL (12.0-16.0); Mean Corpuscular HGB CONC 33.6 g/dL (32.0-36.0); Mean Corpuscular Hemoglobin 33.1 pg (27.0-31.0); Mean Corpuscular Volume 98.5 fL (78.0-98.0); Mean Platelet Volume 9.2 fL (7.4-10.4); Platelet Count 210 thou/uL (130-400); RBC Distribution Width 11.9 % (11.5-14.5); Red Blood Cell (RBC) Count 3.73 mill/uL (4.20-5.40); White Blood Cell (WBC) Count 7.6 thou/uL (4.8-10.8)
[2018-10-03 22:48] LABS: ALT (SGPT) 14 U/L (8-55); AST (SGOT) 16 U/L (5-34); Albumin 4.2 g/dL (3.4-4.8); Alkaline Phosphatase 70 U/L (40-150); Anion Gap 14 mmol/L (10-20); BUN (Urea Nitrogen) 19 mg/dL (9.8-20.1); Bilirubin, Total 0.6 mg/dL (0.2-1.2); CK (CPK) 103 U/L (29-168); Calc. Creatinine Clearance 0 mL/min (70-130); Calcium 9.2 mg/dL (7.8-10.44); Carbon Dioxide 24 mmol/L (23-31); Chloride 106 mmol/L (98-107); Estimated GFR-MDRD 46; Globulin 2.2 g/dL (2.4-3.5); Glucose 133 mg/dL (83-110); Potassium 4.1 mmol/L (3.5-5.1); Protein, Total 6.4 g/dL (6.0-8.3); Sodium 140 mmol/L (136-145)
--- NOTE | 2018-10-03 23:26 | CT ---
EXAM: CT ABDOMEN AND PELVIS HISTORY: Abdominal pain. COMPARISON: 04/07/2015 Procedure: Multiple contiguous axial images were obtained and a CT of the abdomen and pelvis with IV contrast. C oronal reformats were performed. FINDINGS: Lower Chest: within normal limits. Vessels: Normal caliber aorta. Heart: Calcification of the mitral annulus. Upper normal cardiac silhouette. Abdomen: Portal vein:Patent Gallbladder: Surgically absent. Liver: No enhancing .mass. Two separate cysts in the hepatic parenchyma are redemonstrated. Largest c yst is in the right hepatic lobe measuring 4.2 x 4.8 cm. Cyst in the left hepatic lobe measures 1.3 x 1.8 cm. Pancreas: within normal limits. Spleen: within normal limits. Adrenals: within normal limits. Kidneys: Symmetric enhancement. No obstructive uropathy. 1.2 cm hypodensity emanating from the upper pole the right kidney, which is increased since the previous examination. Bilaterally no obstructive uropathy. Punctate 1 mm calculus in the right intrarenal collecting system. Peritoneum: No ascites or free air, no fluid collection. Bowel: Limited evaluation due to technique. No evidence of small bowel obstruction. Ileocecal junctio n is normal. Scattered fecal material in a nondistended, nondilated colon. Diverticulosis in the sigmoid colon, without evidence of diverticulitis. Appendix is not appreciated. No inflammation of th e cecal apex. Mesentery and Retroperitoneum: No enlarged mesenteric or retroperitoneal lymph nodes. Abdominal Wall: within normal limits. Pelvis: Reproductive Organs: Surgically absent uterus. Pelvis: within normal limits. Bladder: Markedly distended urinary bladder with small diverticula scattered throughout the urinary b ladder. The large diverticulum appears to involve the posterior right aspect of the urinary bladder. Bones: No lytic or blastic lesions. Degenerative changes are identified. IMPRESSION: 1. Diverticulosis in the sigmoid colon. No diverticulitis. 2. Markedly distended urinary bladder with evidence of multiple bladder diverticula. Post void residu al urinary bladder ultrasound may be beneficial. 3. Hepatic cysts. 4. Probable slightly complex cyst emanating from the upper pole the right kidney. Transcribed Date/Time: 10/03/2018 11:32 PM
[2018-10-04] MEDS ORDERED: cefTRIAXone\\ROCEPHIN 2 GM VIAL ONE (01:30)
[2018-10-04] MEDS ORDERED: Acetaminophen 325 MG TAB PO PRN (04:16)
[2018-10-04] MEDS ORDERED: Ondansetron ODT 4 MG TAB SL PRN (04:16)
[2018-10-04] MEDS ORDERED: Ondansetron PF 4 MG/2 ML Vial IVP PRN (04:16)
[2018-10-04] MEDS ORDERED: Sodium Chloride 0.9% 1,000 ML IV SCH ×2 (04:16→10:04)
[2018-10-04] MEDS ORDERED: Acetaminophen 325 MG TAB ONE (05:34)
[2018-10-04 08:59] VITALS: BMI 28.6
[2018-10-04] MEDS ORDERED: Famotidine 20 MG TAB PO SCH (09:00)
[2018-10-04] MEDS: Amiodarone 200 MG TAB PO SCH ×2 (11:22→23:10)
[2018-10-04] MEDS: Apixaban 2.5 MG TAB PO SCH ×2 (11:22→23:09)
--- NOTE | 2018-10-04 13:01 | HP ---
CHIEF COMPLAINT: Dysuria, dark urine, and generalized weakness. HISTORY OF PRESENT ILLNESS: The patient is an 88-year-old female from [place], who was brought to the emergency room after she found that her urine was very dark and just in the last day or 2. She had dysuria along with generalized weakness, which was going on for a few days. She denied any fever. No chest pain or shortness of breath. Apparently, she was started on amiodarone for atrial fibrillation by Dr. Dominguez recently, her reinforcement maker. She came to the emergency room, was found to have most likely UTI/cystitis with some generalized weakness and the decision was made about IV hydration and antibiotic IV to be started and continued with the observation admission. PAST MEDICAL HISTORY: Positive for, 1. Atrial fibrillation. 2. CKD. 3. Diabetes insipidus. 4. Hyperlipidemia. 5. Hypertension. 6. Bipolar. 7. Frequent UTIs. 8. Urinary retention. 9. Right breast cancer. PAST SURGICAL HISTORY: 1. Right breast lumpectomy. 2. Appendectomy. 3. Cholecystectomy. 4. Tonsillectomy. 5. Exploratory laparotomy for GI lesions. 6. Hysterectomy. FAMILY HISTORY: Mother had CHF, and there was a kidney cancer in her family. SOCIAL HISTORY: She does not have any history of alcohol intake, cigarette smoking, or illicit drug use. MEDICATIONS: 1. Amiodarone 200 mg twice a day. 2. Quetiapine 50 mg daily. 3. Crestor 10 mg daily at bedtime. 4. Anastrozole 1 mg once a day. 5. Eliquis 2.5 mg twice a day. 6. Stool softener 240 mg once a day. REVIEW OF SYSTEMS: All systems were reviewed and they are negative, except for symptoms mentioned in HPI. PHYSICAL EXAMINATION: VITAL SIGNS: Blood pressure is 125/66, pulse is 84, respirations are 16, temperature is 98.5. The temperature at the time of first vitals was up to 99.2. HEENT: Head is atraumatic and normocephalic. Eyes are PERRLA. Sclerae are nonicteric. Oral mucosa is somewhat dry. NECK: Supple. LUNGS: Clear. HEART: S1 and S2. Irregularly irregular. No S3. No S4. ABDOMEN: Soft and nontender. Bowel sounds are present. No organomegaly. EXTREMITIES: No clubbing, cyanosis, or edema. NEUROLOGICAL: She follows my commands. She moves all 4 extremities. There is no any motor or sensory deficits present. Cranial nerves are intact. LABORATORY DATA: Labs showed white count of 7.6, hemoglobin 12.3, hematocrit 36.7, platelet count is 210. Normal electrolytes. BUN of 19, creatinine 1.11, glucose 133, globulin 2.2. Urine showed clarity turbid, 50 of proteins, 3+ blood, negative nitrites, negative leukocyte esterases, RBCs greater than 50, and WBCs greater than 50, 1+ bacteria. IMAGING STUDIES: CT of the abdomen and pelvis showed diverticulosis in the sigmoid colon, no diverticulitis, along with markedly distended urinary bladder with evidence of multiple bladder diverticula. Also, there was evidence of hepatic cyst and probably slightly complex cyst emanating from the upper pole of the right kidney. IMPRESSION: 1. Most likely cystitis. We are waiting for electrocardiogram to be done, but she is in somewhat irregular rhythm. Electrocardiogram was just done and it shows atrial fibrillation with a ventricular rate of 71 beats per minute. 2. Chronic renal insufficiency, stage 2. 3. Bipolar disorder. 4. Generalized weakness most likely related to current infection. 5. History of diabetes insipidus. 6. Hypertension. 7. Hyperlipidemia. 8. Frequent urinary tract infections and urinary retention. Apparently, the patient refused to do self-catheterization, which was recommended by urologist. She had a workup done by urologist in the past and urinary retention was found, but she refused to do self-catheterization, which puts her in high risk to get recurrent urinary tract infections. PLAN: So, plan is to admit her to observation with monitored bed since she has atrial fibrillation with controlled ventricular rate. Her condition is fair. Activity, bedrest and bathroom privileges. IV normal saline at 100 mL. She will be on PUD prophylaxis with Pepcid p.o. We will continue her Rocephin, which was started in the emergency room, and we will continue her home medications. If she does not convert to normal sinus rhythm while on amiodarone, she will be probably seen by reinforcement maker as a followup. At this point, she is getting admitted. Job ID: [id number]
[2018-10-04] MEDS: Rosuvastatin 10 MG TAB PO SCH (21:50)
[2018-10-05 05:16] LABS: #Eosinphils 0.5 thou/uL (0.0-0.7); #Lymphocytes 1.3 thou/uL (1.20-3.40); #Monocytes 0.7 thou/uL (0.11-0.59); #Neutrophils 5.9 thou/uL (1.40-6.50); %Basophils 0.1 % (0.0-1.0); %Eosinophils 5.8 % (0.0-10.0); %Lymphocytes 15.2 % (21.0-51.0); %Monocytes 8.4 % (0.0-10.0); %Neutrophils 70.5 % (42.0-75.0); Mean Corpuscular HGB CONC 33.6 g/dL (32.0-36.0); Mean Corpuscular Hemoglobin 33.7 pg (27.0-31.0); Mean Platelet Volume 9.7 fL (7.4-10.4); Platelet Count 175 thou/uL (130-400); RBC Distribution Width 12.1 % (11.5-14.5); Red Blood Cell (RBC) Count 3.55 mill/uL (4.20-5.40); White Blood Cell (WBC) Count 8.4 thou/uL (4.8-10.8)
[2018-10-05 05:29] LABS: Anion Gap 13 mmol/L (10-20); BUN (Urea Nitrogen) 11 mg/dL (9.8-20.1); Calc. Creatinine Clearance 61 mL/min (70-130); Calcium 9.3 mg/dL (7.8-10.44); Carbon Dioxide 23 mmol/L (23-31); Chloride 109 mmol/L (98-107); Estimated GFR-MDRD 66; Glucose 95 mg/dL (83-110); Potassium 4.8 mmol/L (3.5-5.1); Sodium 140 mmol/L (136-145)
[2018-10-05] MEDS ORDERED: Amiodarone 200 MG TAB PO SCH (09:00)
[2018-10-05] MEDS: cefTRIAXone\\ROCEPHIN 1 GM in Sodium Chloride 0.9% 100 ML IVPB SCH (09:16)
[2018-10-05] MEDS: Anastrozole 1 MG TAB PO SCH (09:18)
[2018-10-05] MEDS: Famotidine 20 MG TAB PO SCH (09:19)
[2018-10-05] MEDS: Apixaban 2.5 MG TAB PO SCH (09:19)
--- NOTE | 2018-10-05 12:19 | PRG ---
DATE OF SERVICE: 10/05/2018 SUBJECTIVE: The patient is seen and examined at the bedside. She feels good. She does not have much complaints to offer. OBJECTIVE: VITAL SIGNS: Blood pressure is 126/64, pulse is 69, temperature is 98.4, respirations 18, and O2 saturation is 97% on room air. HEENT: Her head is atraumatic and normocephalic. Eyes are PERRLA. Sclerae are nonicteric. Oral mucosa is moist. NECK: Supple. LUNGS: Clear. HEART: S1 and S2. Irregularly irregular. No S3. No S4. ABDOMEN: Soft, nontender, and nondistended. EXTREMITIES: No clubbing, cyanosis, or edema. NEUROLOGICAL: She is alert and oriented x4. There is no any motor or sensory deficits present. Cranial nerves are intact. LABORATORY DATA: Labs showed white count of 8.4, hemoglobin 12.0, hematocrit 35.7, and platelet count is 175,000. Sodium 140, potassium 4.8, chloride 109, CO2 of 23, BUN 11, creatinine 0.82, and calcium 9.3. Microbiology, urine culture, no growth at 12 hours. IMPRESSION: 1. Possible cystitis, although the preliminary urine culture is back without any growth. We are still going to treat her with antibiotic Rocephin for now until we have final report in 24 hours. 2. Urinary retention. She was found to have more than 600 mL in her bladder postvoiding. The Dunaway catheter was placed yesterday and she was having a Dunaway catheter at the time of discharge. 3. Atrial fibrillation, recurrent, status post [address] Dominguez. The patient is on amiodarone. The case was discussed with Dr. Dominguez, who is on-call today, and he is going to do cardioversion tomorrow morning on her. We will continue amiodarone. 4. Bipolar disorder, stable, chronic. 5. Generalized weakness, improved. 6. History of diabetes insipidus. 7. Hypertension. 8. Hyperlipidemia. 9. Frequent urinary tract infections. PLAN: As mentioned above. Renal insufficiency improved with IV fluids. We will stop her fluids and continue the rest of the regimen. We will continue antibiotic until we have final report. Dunaway catheter will remain in place and she will get cardioversion by Dr. Dominguez tomorrow. Job ID: [id number]
[2018-10-05] MEDS: Amiodarone 200 MG TAB PO SCH (20:57)
[2018-10-05] MEDS: Rosuvastatin 10 MG TAB PO SCH (20:57)
[2018-10-05] MEDS: Apixaban 5 MG TAB PO SCH (20:57)
[2018-10-06] MEDS ORDERED: Digoxin 0.125 MG TAB PO SCH ×2 (10:40→10:45)
[2018-10-06] MEDS: Amiodarone 200 MG TAB PO SCH (11:04)
[2018-10-06] MEDS: Famotidine 20 MG TAB PO SCH (11:04)
[2018-10-06] MEDS: Anastrozole 1 MG TAB PO SCH (11:05)
[2018-10-06] MEDS: cefTRIAXone\\ROCEPHIN 1 GM in Sodium Chloride 0.9% 100 ML IVPB SCH (11:05)
[2018-10-06] MEDS: Apixaban 5 MG TAB PO SCH (11:05)
[2018-10-06] MEDS ORDERED: Lidocaine 1% PF 5 ML VIAL ONE (11:17)
[2018-10-06] MEDS ORDERED: PROPOFOL 200 MG/20 ML VIAL ONE (11:17)
[2018-10-06] MEDS ORDERED: Digoxin 0.25 MG TAB PO SCH (11:30)
[2018-10-06 12:02] VITALS: TEMP 97.1
[2018-10-06 12:35] VITALS: BP 154/65
--- NOTE | 2018-10-06 14:40 | OP ---
DATE OF PROCEDURE: 10/06/2018 PROCEDURE PERFORMED: Transesophageal echocardiogram. INDICATION: The patient is an 88-year-old woman with paroxysmal atrial fibrillation. DESCRIPTION OF PROCEDURE: The patient was taken to the PACU. The patient was sedated by Anesthesiology. A transesophageal probe was placed into the distal esophagus and stomach. Echocardiographic images were obtained. The transesophageal probe was removed. FINDINGS: 1. Normal left ventricular systolic function. 2. Biatrial enlargement. 3. [id number] mitral regurgitation. 4. Mild tricuspid regurgitation. 5. No thrombus is noted in the left atrial or left atrial appendage. 6. Atherosclerotic debris in the descending aorta. IMPRESSION: No formed thrombus in the left atrial or left atrial appendage. Job ID: [id number]
--- NOTE | 2018-10-06 14:40 | OP ---
DATE OF PROCEDURE: 10/06/2018 PROCEDURE PERFORMED: Electrocardioversion. INDICATIONS: This is an 88-year-old woman with paroxysmal atrial fibrillation. DESCRIPTION OF PROCEDURE: The patient was taken to the PACU. The patient was sedated by Anesthesiology. The patient was shocked with 200 joules of synchronized electricity. The patient converted to normal sinus rhythm. IMPRESSION: Successful electrocardioversion. Job ID: [id number]
--- NOTE | 2018-10-06 15:23 | DIS ---
DATE OF ADMISSION: 10/04/2018 DATE OF DISCHARGE: 10/06/2018 NIGHT CLERK AUDITOR: Dr. Dominguez. PROCEDURE: Cardioversion. HOSPITAL COURSE: The patient is an 88-year-old female from [facility], who was brought to the emergency room after she was found that her urine was very dark and she had some dysuria along with generalized weakness. It was suspicion that she might have UTI. She denied any fever. No chest pain. No shortness of breath. She was started on amiodarone recently for atrial fibrillation by Dr. Dominguez, her cannon crewmember. She was placed on IV antibiotic, IV fluids, and got admitted to the hospital. At the time of admission, her white count was 7.6, hemoglobin 12.3, hematocrit 36.7, platelet count was 210, BUN 19, creatinine 1.1, glucose 133. Urinalysis showed clarity turbid, 50 of protein, 3+ blood, negative nitrites, negative leukocyte esterases, rbc's greater than 50, wbc's greater than 50, 1+ bacteria. CT of the abdomen and pelvis showed diverticulosis in the sigmoid colon. No diverticulitis along with markedly distended urinary bladder with evidence of multiple bladder diverticula. There was evidence of hepatic cyst and probably slightly complex cyst emanating from the upper pole of the right kidney. She got admitted to the hospital with working diagnosis of cystitis. She was placed on IV Rocephin and urine culture was one and came back negative. In the meantime, she had large urine residual postvoiding more than 600, so the Dunaway catheter was placed. Urine culture came back negative. In the meantime, since she was in atrial fibrillation with controlled RVR, she was continued on her amiodarone and Cardiology was requested to see her. She underwent cardioversion the next day and she is in sinus rhythm at this point. She is doing well. Blood pressure is 151/70, pulse is 65, temperature is 98.2, respirations 16, O2 saturations 97% on room air. She is seen and examined before she is discharged. She is in sinus rhythm. Lungs are clear. She was started on digoxin 0.25 mg x1, then she is going to be on 0.125 mg of digoxin daily per her cannon crewmember, Dr. Dominguez. Other medications at the time of discharge; amiodarone 400 mg once a day, Rosuvastatin 10 mg at bedtime, Seroquel 50 mg daily, anastrozole 1 mg one daily, digoxin 0.125 mg daily, apixaban 5 mg daily. Apparently, she was on 2.5 mg of apixaban twice a day and cannon crewmember made a statement that she needs to be on 5 twice a day. DIAGNOSES AT THE TIME OF DISCHARGE: 1. Atrial fibrillation with controlled ventricular rate, status post cardioversion. 2. Urinary retention, status post Dunaway catheter placement, acute urinary tract infection/cystitis were ruled out with negative urine culture. Antibiotic was stopped. 3. Bipolar disorder, chronic, stable. 4. Generalized weakness, improved. 5. History of diabetes insipidus. 6. Hypertension. 7. Hyperlipidemia. 8. Frequent urinary tract infection. The patient is discharged back to [place] in good condition. She is in sinus rhythm. She will stay on low-salt diet. Activities, as tolerated. Her discharge medications as mentioned above. Time spent on this discharge is less than 30 minutes. Job ID: [id number]
[2018-10-07] MEDS ORDERED: Digoxin 0.125 MG TAB PO SCH (09:00)
== END 2018-10-06 14:39 | disposition home health service (06) ==
LOC: ERS 21:44 → ERHOLD 10-04 01:10 → 2SW 10-04 02:11
PROVIDERS: ADMIT Hospitalist; ATTEND Hospitalist
DX: N39.0 Urinary tract infection, site not specified (principal); R33.9 Retention of urine, unspecified; R30.0 Dysuria; R53.1 Weakness; I12.9 Hypertensive chronic kidney disease with stage 1 through stage 4 chronic kidney disease, or unspecified chronic kidney disease; N18.2 Chronic kidney disease, stage 2 (mild); E23.2 Diabetes insipidus; E78.5 Hyperlipidemia, unspecified; F31.9 Bipolar disorder, unspecified; C50.911 Malignant neoplasm of unspecified site of right female breast; F17.210 Nicotine dependence, cigarettes, uncomplicated; Z79.01 Long term (current) use of anticoagulants; Z79.899 Other long term (current) drug therapy
CPT/HCPCS: 74177; 80048; 80053; 82550; 85025 ×2; 87086; 93005; 93312; 94760; 96361; 96365; 96366; 99285; G0378 ×3; 36415; 81003; 81015; J0696; J2001; J2704; J3490; Q9966

== ENCOUNTER 2018-12-29 09:13 | Outpatient (CLI) | payer MEDICARE, OTHER ==
--- NOTE | 2018-12-29 11:54 | BD ---
DEXA BONE DENSITY STUDY: Date: 12/29/18 HISTORY: Osteoporosis screening. COMPARISON: None. FINDINGS: Lumbar Spine: BMD (g/cm2) L1 0.828 T-Score: -1.5 L2 0.808 T-Score: -2.0 L3 0.937 T-Score: -1.3 L4 0.920 T-Score: -1.3 L1-L4 0.818 T-Score: -1.5 Left Femoral Neck: 0.576 T-Score: -2.5 Total Femur: 0.787 T-Score: -1.3 WHO Classification: Osteoporosis. IMPRESSION: Osteoporosis with elevated fracture risk. POS: [facility]
== END 2018-12-29 09:14 | disposition home or self-care (01) ==
LOC: BICMAMMO 09:13
PROVIDERS: ATTEND Internal Medicine Hematology & Oncology
DX: Z13.820 Encounter for screening for osteoporosis (principal); C50.111 Malignant neoplasm of central portion of right female breast; M81.0 Age-related osteoporosis without current pathological fracture
CPT/HCPCS: 77080

== ENCOUNTER 2019-04-09 16:04 | Emergency (ER) | payer MEDICARE, OTHER ==
--- NOTE | 2019-04-09 17:06 | CT ---
CT head noncontrast HISTORY: Fall. Head injury. FINDINGS: There is no evidence of acute intracranial hemorrhage or infarct. Diffuse cortical atrophy and mild chronic ischemic small vessel disease. Dystrophic calcification at the basal ganglia. There is no mass effect or shift of midline structures. Visualized paranasal sinuses remain well aera davidson. IMPRESSION: No acute intracranial abnormalities are demonstrated.
[2019-04-09 17:49] LABS: Bacteria/HPF 4+ HPF (None Seen); Bilirubin Negative (Negative); Blood, Urine Negative (Negative); Clarity Extra Turbid (Clear); Glucose, Urine (Dipstick) Normal (Negative); Leukocyte 500 Leu/uL (Negative); Nitrite 2+ (Negative); Protein, Urine (Dipstick) 100 mg/dL (Neg-Trace); Urobilinogen Normal mg/dL (Less than 2)
[2019-04-09 17:56] LABS: RBC/HPF 0-3 HPF (0-3); Squamous Epithelial 0-3 HPF (0-3); WBC/HPF 0-3 HPF (0-3)
[2019-04-09 17:57] LABS: Triple Phosphate Crystal 4+ HPF (None Seen)
--- NOTE | 2019-04-09 18:21 | RAD ---
AP PELVIS RADIOGRAPHS 04/09/19 HISTORY: Bilateral hip pain after a fall. FINDINGS: There is bilateral hip osteoarthritis greater on right. No obvious fracture seen. There is no disloca tion. Degenerative changes are seen in the lower lumbar spine as well as involving the pubic symphysi s with mild osteoarthritis involving each sacroiliac joint. Phleboliths overlie the pelvis. IMPRESSION: Degenerative changes as described above, but no definite acute osseous abnormality is seen. POS: [facility]
--- NOTE | 2019-04-09 19:44 | CT ---
NONCONTRAST CT THORACIC SPINE: 04/09/19 HISTORY: Trauma after fall twelve days ago. COMPARISON: None. FINDINGS: Multilevel degenerative changes seen in the visualized lower cervical spine as well involving the th oracic spine. There is prominent end plate degenerative changes at the T9-10 and T10-11 levels. Vacuu m phenomenon is seen in the T10-11 and T11-12 intervertebral disc spaces. No fracture or subluxation is seen. Interspinous distances are within normal limits. There is moderate to severe left sided neural foraminal narrowing at the T9-10 level due to posterio r osteophyte formation and bony encroachment. Mild left sided neural foraminal narrowing is seen at t he T10-11 level again related to bony encroachment. There is no significant central canal narrowing a t any level and no additional levels of neural foraminal narrowing are appreciated. Vascular calcifications are seen in the thoracic aorta. The paravertebral soft tissues have a normal appearance. Visualized lungs are clear aside from minimal atelectasis and/or scarring at the medial aspect of eac h lung base. There is partial visualization of a large right hepatic lobe cyst also seen on prior CT abdomen on 04/07/15. Hypodense lesion in the superior pole right kidney are identified and stable in appearance comp ared to CT abdomen on 10/03/18. There is suggestion of an approximately 4 mm nonobstructing calculus french perior pole right kidney. IMPRESSION: 1. Degenerative changes in the thoracic spine without evidence of a fracture or subluxation. 2. Right hepatic lobe and superior pole right renal cysts. POS: ROQUE
== END 2019-04-09 19:40 | disposition home or self-care (01) ==
LOC: ERS 16:04
DX: M54.6 Pain in thoracic spine (principal); I10 Essential (primary) hypertension; I48.91 Unspecified atrial fibrillation; F31.9 Bipolar disorder, unspecified; Z79.899 Other long term (current) drug therapy; Z79.01 Long term (current) use of anticoagulants; W18.30XA Fall on same level, unspecified, initial encounter
CPT/HCPCS: 70450; 72128; 72170; 81003; 81015

== ENCOUNTER → 2019-04-15 | Day surgery (SDC) | payer MEDICARE, OTHER ==
[2019-04-14 10:24] VITALS: BMI 33.4
[~2019-04-15] MED LIST changes: -ISOVUE-370 76%-LOCM 1 ML ONE; +PROPOFOL 20 ML ONE
[2019-04-15 06:58] LABS: #Eosinphils 0.4 thou/uL (0.0-0.7); #Monocytes 0.7 thou/uL (0.11-0.59); #Neutrophils 5.6 thou/uL (1.40-6.50); %Basophils 0.5 % (0.0-1.0); %Eosinophils 4.8 % (0.0-10.0); %Lymphocytes 12.8 % (21.0-51.0); %Monocytes 8.6 % (0.0-10.0); %Neutrophils 73.4 % (42.0-75.0); Hemoglobin 13.6 g/dL (12.0-16.0); Mean Corpuscular HGB CONC 32.9 g/dL (32.0-36.0); Mean Corpuscular Hemoglobin 32.9 pg (27.0-31.0); Mean Platelet Volume 9.1 fL (7.4-10.4); Platelet Count 195 thou/uL (130-400); RBC Distribution Width 12.3 % (11.5-14.5); Red Blood Cell (RBC) Count 4.13 mill/uL (4.20-5.40); White Blood Cell (WBC) Count 7.7 thou/uL (4.8-10.8)
[2019-04-15 07:04] LABS: INR-International Normal Ratio 1.2; PTT 32.6 SEC (22.9-36.1); Prothrombin Time 14.9 SEC (12.0-14.7)
[2019-04-15 07:18] LABS: Anion Gap 12 mmol/L (10-20); BUN (Urea Nitrogen) 18 mg/dL (9.8-20.1); Calc. Creatinine Clearance 51 mL/min (70-130); Calcium 9.9 mg/dL (7.8-10.44); Carbon Dioxide 27 mmol/L (23-31); Chloride 105 mmol/L (98-107); Estimated GFR-MDRD 55; Glucose 112 mg/dL (83-110); Potassium 4.1 mmol/L (3.5-5.1); Sodium 140 mmol/L (136-145)
--- NOTE | 2019-04-15 09:17 | OP ---
DATE OF PROCEDURE: 04/15/2019 PROCEDURE PERFORMED: Electrical cardioversion. ADDITIONAL REFERRING PHYSICIAN: Dr. Prabhakar Mckeon. REASON FOR PROCEDURE: Ms. King is an 88-year-old woman with history of mitral valve disease, persisting atrial fibrillation, who has been now for loaded amiodarone. IMELDA prior to the procedure demonstrated no intracardiac clots and on 2.5 mg Eliquis twice a day, here for planned cardioversion. DESCRIPTION OF PROCEDURE: The patient received propofol by anesthesia specialist. After adequate level of sedation achieved, a synchronized 150-joule shocks promptly converted the patient back to sinus rhythm. Returned rate is 72 beats per minute. The patient tolerated the procedure well. No complication noted. PLAN: Continue maintenance dose of amiodarone and Eliquis at the current level. Routine followup in the office. Job ID: [id number]
--- NOTE | 2019-04-15 15:58 | ECHO ---
DATE OF SERVICE: 04/15/19 REFERRING PHYSICIAN: Dr. Hossein Dominguez; Dr. Prabhakar Tamayo REASON FOR PROCEDURE: The patient is an 88-year-old woman with history of persistent atrial fibrillation, prior cardioversi on, failed. On low dose Amiodarone and -----, now fully loaded and here for IMELDA guided cardioversion. She is on Eliquis but suboptimal dose at 2.5 mg twice a day. PROCEDURE: The patient received Propofol by Anesthesia specialist. After adequate level of sedation achieved, a standard transesophageal echocardiogram probe was passed into the esophagus without diff iculty. Patient tolerated the procedure well, no complications noted. RESULTS: Left atrium is mild to moderately enlarged about 4.5 cm in horizontal diameter. Right atrium is also enlarged moderately. The left atrial appendage well visualized contains no clots. Spontaneous echo c ontrast seen in the left atrium and appendage. Left atrial appendage velocities are reduced down to 2 5 cm per second. Four out of four pulmonary veins were seen without systolic flow reversal. Moderate mitral regurgitation seen with multiple jets, possible mixed ------ vegetation of the mitral valve i s seen with ------ coarctation with posterior leaflet collapse is also seen. Left ventricular systoli c function is preserved. LVEF about 60%. Normal chamber sizes and mild thickening is noted. Right willard ed chambers are nondilated. Moderate tricuspid regurgitation seen. The aortic valve is thickened bu t not stenotic and not regurgitant. The pulmonary valve has mild regurgitation. Pericardial space wi thout effusion. The interatrial septum is free of defect. The visualized portion of ascending and d escending aorta without aneurysm, dissection or mobile atheroma. Some adherent atheroma/thickening of the descending aorta is seen. CONCLUSION: 1. No intracardiac clots. 2. Normal left ventricular systolic junction. 3. Biatrial enlargement. 4. Moderate mitral and tricuspid regurgitation. PLAN: Proceed with the planned cardioversion.
== END ==
LOC: CCL 05:58
PROVIDERS: ATTEND Internal Medicine Cardiovascular Disease
PROC: B24BZZ4 Ultrasonography of Heart with Aorta, Transesophageal (ICD-10-PCS; principal; 2019-04-15)
PROC: 5A2204Z Restoration of Cardiac Rhythm, Single (ICD-10-PCS; 2019-04-15)
DX: I48.19 Other persistent atrial fibrillation (principal); I08.1 Rheumatic disorders of both mitral and tricuspid valves; I10 Essential (primary) hypertension; F31.9 Bipolar disorder, unspecified; K21.9 Gastro-esophageal reflux disease without esophagitis; Z79.01 Long term (current) use of anticoagulants; Z79.83 Long term (current) use of bisphosphonates; Z79.899 Other long term (current) drug therapy
CPT/HCPCS: 36415; 80048; 85025; 85610; 85730; 92960; 93005; 93010; 93312; J2704

== ENCOUNTER 2019-04-20 10:40 | Observation (INO) | payer MEDICARE, OTHER ==
[2019-04-20 11:21] LABS: #Eosinphils 0.5 thou/uL (0.0-0.7); #Lymphocytes 0.9 thou/uL (1.20-3.40); #Monocytes 0.8 thou/uL (0.11-0.59); #Neutrophils 6.8 thou/uL (1.40-6.50); %Basophils 0.1 % (0.0-1.0); %Eosinophils 5.1 % (0.0-10.0); %Monocytes 9.1 % (0.0-10.0); %Neutrophils 75.8 % (42.0-75.0); Hemoglobin 13.9 g/dL (12.0-16.0); Mean Corpuscular HGB CONC 33.4 g/dL (32.0-36.0); Mean Corpuscular Hemoglobin 33.6 pg (27.0-31.0); Mean Platelet Volume 9.6 fL (7.4-10.4); Platelet Count 213 thou/uL (130-400); RBC Distribution Width 12.1 % (11.5-14.5); Red Blood Cell (RBC) Count 4.14 mill/uL (4.20-5.40); White Blood Cell (WBC) Count 8.9 thou/uL (4.8-10.8)
[2019-04-20] MEDS ORDERED: Aspirin Chewable 81 MG TAB ONE (11:29)
--- NOTE | 2019-04-20 11:30 | RAD ---
Chest AP view INDICATION: Dyspnea with history of cardioversion COMPARISON: Chest radiograph dated September 22, 2018 FINDINGS: Lungs:Chronic lung changes are stable Cardiac silhouette:Mild cardiomegaly is stable Pulmonary vasculature:Normal Pleural spaces:No pleural effusion or pneumothorax is demonstrated. Upper abdomen:No abnormality seen. Osseous structures: No acute osseous abnormality. Additional findings:None. IMPRESSION: No acute cardiopulmonary abnormality.
[2019-04-20 11:45] LABS: ALT (SGPT) 20 U/L (8-55); AST (SGOT) 26 U/L (5-34); Albumin 4.5 g/dL (3.4-4.8); Alkaline Phosphatase 78 U/L (40-110); Anion Gap 13 mmol/L (10-20); BUN (Urea Nitrogen) 12 mg/dL (9.8-20.1); Bilirubin, Total 1.1 mg/dL (0.2-1.2); Calc. Creatinine Clearance 0 mL/min (70-130); Calcium 9.3 mg/dL (7.8-10.44); Carbon Dioxide 27 mmol/L (23-31); Chloride 106 mmol/L (98-107); Estimated GFR-MDRD 61; Globulin 2.8 g/dL (2.4-3.5); Glucose 101 mg/dL (83-110); Potassium 4.5 mmol/L (3.5-5.1); Protein, Total 7.3 g/dL (6.0-8.3); Sodium 141 mmol/L (136-145)
--- NOTE | 2019-04-20 13:46 | PDOC.FPRHP ---
- History of Present Illness Chief Complaint: Chest Pain/SOB History of Present Illness: 88 yo female seen in ED today due to acute onset SOB and chest pain. Last week, she went in for her fourth cardioversion for A-fib and has felt well since. Today, patient reports she was walking and heading to a urology follow up appointment when symptoms occurred. She notes this felt exactly like when she went into A-fib with RVR before. She notes that it felt not so much like a pain , but more of a tightness. She reports the pain resolved when she rested. Patient denies any diaphoresis, n/v/d, or lightheadedness. She reports no recent illness or other changes in her health. ED Course: ASA 325 mg - Allergies/Adverse Reactions Allergies Allergy/AdvReac Type Severity Reaction Status Date / Time No Known Drug Allergies Allergy Verified 04/14/19 10:24 - Home Medications Medication Instructions Recorded Confirmed Type Anastrozole 1 mg PO DAILY 03/21/16 04/20/19 History Rosuvastatin Calcium 10 mg PO HS 03/21/16 04/20/19 History Amiodarone [Cordarone] 200 mg PO DAILY 09/22/18 04/20/19 History Apixaban [Eliquis] 5 mg PO BID tab 10/06/18 04/20/19 Rx QUEtiapine Fumarate [Seroquel] 1 tab PO HS 04/14/19 04/20/19 History busPIRone HCl [Buspirone HCl] 1 tab PO BID 04/14/19 04/20/19 History Alendronate Sodium [Fosamax] 70 mg PO Q7D 04/20/19 04/20/19 History - History PMHx: Afib, HTN, breast cancer, Bipolar disorder, urinary retention PSHx: Lumpectomy right breast, appendectomy, hysterectomy, Cholecystectomy, Ex lap, Cardioversion x4 FHx: noncontributory Social: Denies alcohol, drug, or tobacco use. Patient lives in independent living at [place]. - Review of Systems General: denies: fever/chills, weight/appetite/sleep changes Eyes: denies: eye pain, vision changes ENT: denies: nasal congestion, rhinorrhea Respiratory: reports: shortness of breath. denies: cough, congestion Cardiovascular: reports: chest pain. denies: palpitation, edema Gastrointestinal: denies: nausea, vomiting, diarrhea Genitourinary: reports: other (Chronic indwelling catheter due to recurrent UTI and urinary retention.). denies: incontinence, dysuria Skin: denies: rashes, lesions Musculoskeletal: denies: pain, tenderness, stiffness Neurological: denies: numbness, syncope Psychological: denies: anxiety, depression - Vital signs BP: 129/78 HR: 66 RR: 22 Tmax: 98.2 Pox: 97% on RoomAir Wt: 79 kg - Physical Exam Constitutional: NAD, awake, alert and oriented HEENT: PERRLA, grossly normal vision, grossly normal hearing, normal nasal mucosa Neck: supple, trachea midline Heart: RRR, normal S1/S2, no murmurs/rubs/gallops Lungs: CTAB, no respiratory distress, good air movement Abdomen: soft, non-tender, bowel sounds present, no masses/distention Musculoskeletal: normal structure, normal tone Neurological: no focal deficit, CN II-XII intact, normal sensation Skin: no rash/lesions, good turgor, capillary refill <2 seconds Heme/Lymphatic: no unusual bruising or bleeding, no purpura Psychiatric: normal mood and affect, good judgment and insight, intact recent and remote memory FMR H&P: Results - Labs Result Diagrams: 04/20/19 10:57 04/20/19 10:57 Lab results: WBC 8.9 thou/uL (4.8-10.8) 04/20/19 10:57 Hgb 13.9 g/dL (12.0-16.0) 04/20/19 10:57 Hct 41.6 % (36.0-47.0) 04/20/19 10:57 MCV 100.0 fL (78.0-98.0) H 04/20/19 10:57 Plt Count 213 thou/uL (130-400) 04/20/19 10:57 Neutrophils % 75.8 % (42.0-75.0) H 04/20/19 10:57 Sodium 141 mmol/L (136-145) 04/20/19 10:57 Potassium 4.5 mmol/L (3.5-5.1) 04/20/19 10:57 Chloride 106 mmol/L (98-107) 04/20/19 10:57 Carbon Dioxide 27 mmol/L (23-31) 04/20/19 10:57 BUN 12 mg/dL (9.8-20.1) 04/20/19 10:57 Creatinine 0.88 mg/dL (0.6-1.1) 04/20/19 10:57 Glucose 101 mg/dL (83-110) 04/20/19 10:57 Calcium 9.3 mg/dL (7.8-10.44) 04/20/19 10:57 Total Bilirubin 1.1 mg/dL (0.2-1.2) 04/20/19 10:57 AST 26 U/L (5-34) 04/20/19 10:57 ALT 20 U/L (8-55) 04/20/19 10:57 Alkaline Phosphatase 78 U/L (40-110) 04/20/19 10:57 B-Natriuretic Peptide 186.7 pg/mL (0-100) H 04/20/19 10:57 Serum Total Protein 7.3 g/dL (6.0-8.3) 04/20/19 10:57 Albumin 4.5 g/dL (3.4-4.8) 04/20/19 10:57 - EKG Interpretation EK lead EKG shows normal sinus rhythm, Rate (beats per minute): 66, Conduction normal, ST segments normal, T waves normal, [place] normal. - Radiology Interpretation Chest x-ray Status: image reviewed by me (No acute cardiopulmonary process) FMR H&P: A/P - Problem List (1) Chest pain of uncertain etiology Current Visit: No Status: Acute Code(s): R07.89 - OTHER CHEST PAIN (2) History of atrial fibrillation Current Visit: Yes Status: Acute Code(s): Z86.79 - PERSONAL HISTORY OF OTHER DISEASES OF THE CIRCULATORY SYSTEM (3) Urinary retention Current Visit: Yes Status: Acute Code(s): R33.9 - RETENTION OF URINE, UNSPECIFIED (4) Bipolar disorder Current Visit: Yes Status: Acute Code(s): F31.9 - BIPOLAR DISORDER, UNSPECIFIED - Plan 1. Chest Pain - Resolved, HEART score 3 - Likely not cardiac in nature - Will trend troponins - No stress on record, consider stress testing - Continuous cardiac monitoring - Nitro as needed - Primary Stone Driller, Dr. Dominguez - In 2016 distal anterior wall suggestive of ischemia, but no catheterization completed per records 2. Hx of A-fib - 4th cardioversion on 04/15 - Currently NSR - Continue home regimen - CHADSVASC score of 4 - HASBLED score of 2 All other chronic conditions reviewed and medications to be restarted as appropriate. PCP: TANA Chavez CODE STATUS: FULL CODE Disposition: Stable, will admit to Telemetry Observation for further management. Addendum - Attending - Attending Attestation Date/Time: 04/20/19 3291 I personally evaluated the patient and discussed the management with Dr. Knowles. I agree with the History, Examination, Assessment and Plan documented above with any addition or exceptions noted below. Patient here for chest discomfort of acute onset. Similar to previous presentation of Afib RVR. Her EKG shows NSR. Her labs are stable, as are her vital signs. Called her drapery sewer hand office, no stress testing since 2015. Had recent cardioversion a few days ago. Monitor rhythm, likely stress in AM. Troponins negative. Further mgmt per clinical course.
[2019-04-20 14:57] LABS: Troponin I 0.014 ng/mL (< 0.028)
[2019-04-20] MEDS ORDERED: Acetaminophen 325 MG TAB PO PRN (15:47)
[2019-04-20] MEDS ORDERED: Nitroglycerin 0.4 MG TAB (25 Tab Bottle) PO PRN (15:47)
[2019-04-20 15:49] VITALS: BMI 27.6
[2019-04-20] MEDS ORDERED: Alendronate Sodium 70 mg Tablet PO SCH (17:30)
[2019-04-20 17:39] LABS: Troponin I 0.015 ng/mL (< 0.028)
[2019-04-20] MEDS ORDERED: Rosuvastatin 10 MG TAB PO SCH (21:00)
[2019-04-20] MEDS: busPIRone HCl 10 MG TAB PO SCH (22:12)
[2019-04-20] MEDS: Apixaban 5 MG TAB PO SCH (22:13)
[2019-04-21 05:00] LABS: Cardiac Risk 2.5 (Less than 4.5)
--- NOTE | 2019-04-21 05:57 | PDOC.FM ---
- Subjective Subjective: Pt states that she has not had any further chest discomfort since arrival. Denies any events overnight. We discussed her upcoming stress test and pt agreed with plan of care. - Objective Vital Signs & Weight: Vital Signs (12 hours) Temp Pulse Resp BP Pulse Ox 04/21/19 04:15 97.6 F 61 16 100/56 L 94 L 04/20/19 19:16 98.1 F 65 18 122/64 97 Weight Weight 77.649 kg I&O: 04/19/19 04/20/19 04/21/19 06:59 06:59 06:59 Intake Total 250 Output Total 600 Balance -350 Result Diagrams: 04/20/19 10:57 04/20/19 10:57 Phys Exam - Physical Examination Constitutional: NAD HEENT: moist MMs Neck: full ROM Respiratory: no wheezing, clear to auscultation bilateral Cardiovascular: RRR Systolic murmur Gastrointestinal: soft, non-tender Musculoskeletal: no edema, pulses present Neurological: non-focal, moves all 4 limbs Psychiatric: normal affect, A&O x 3 Skin: no rash, cap refill <2 seconds Dx/Plan (1) History of atrial fibrillation Code(s): Z86.79 - PERSONAL HISTORY OF OTHER DISEASES OF THE CIRCULATORY SYSTEM Status: Acute (2) Chest pain of uncertain etiology Code(s): R07.89 - OTHER CHEST PAIN Status: Acute (3) Hyperlipidemia Code(s): E78.5 - HYPERLIPIDEMIA, UNSPECIFIED Status: Chronic Qualifiers: Hyperlipidemia type: unspecified Qualified Code(s): E78.5 - Hyperlipidemia , unspecified - Plan Plan: Chest Pain - Cardioversion and IMELDA 04/15 - no CHF, mod tri-mitral regurg - Resolved, HEART score 3 - Troponins negative x3 - Stress test today - Primary Telephone Clerk, Dr. Dominguez - In 2016 distal anterior wall suggestive of ischemia, but no catheterization completed per records Hx of A-fib - 4th cardioversion on 04/15 - Currently NSR - Continue home regimen - CHADSVASC score of 4 - HASBLED score of 2 All other chronic conditions reviewed and medications to be restarted as appropriate. PCP: TANA Chavez CODE STATUS: FULL CODE Disposition: Stable, will admit to Telemetry Observation for further management. Addendum - Attending - Attending Attestation Date/Time: 04/21/19 1040 I personally evaluated the patient and discussed the management with Dr. Jones. I agree with the History, Examination, Assessment and Plan documented above with any addition or exceptions noted below. Patient doing well. Undergoing stress testing currently. Further mgmt versus d/ c home based on that result. Labs normal and no recurrent pain.
[2019-04-21] MEDS ORDERED: Dextrose 50% Abboject 50 ML SYRINGE SLOW IVP PRN (08:00)
[2019-04-21] MEDS ORDERED: HumaLOG 300 UNITS/3 ML VIAL SC PRN (08:00)
[2019-04-21] MEDS ORDERED: Dextrose 5% in Water 1,000 ML IV PRN (08:00)
[2019-04-21] MEDS: busPIRone HCl 10 MG TAB PO SCH (08:01)
[2019-04-21] MEDS: Apixaban 5 MG TAB PO SCH (08:01)
[2019-04-21] MEDS ORDERED: Amiodarone 200 MG TAB PO SCH (09:00)
[2019-04-21] MEDS ORDERED: Anastrozole 1 MG TAB PO SCH (09:00)
[2019-04-21] MEDS ORDERED: ADENOSINE 60 MG/20 ML VIAL ONE (09:53)
[2019-04-21 12:57] VITALS: BP 133/64; TEMP 98
--- NOTE | 2019-04-21 13:43 | NM ---
EXAM: Nuclear medicine cardiac perfusion examination with ejection fraction HISTORY: Chest pain TECHNIQUE: Rest images: 10.1 mCi technetium 99m sestamibi Stress images: 33.0 mCi of technetium 9M sestamibi; Adenosine COMPARISON: None FINDINGS: Tomographic images: No fixed or reversible perfusion defects. Gated images: Normal wall motion and ejection fraction of 67%. EDV: 77 mL LHR: 0.4 TID: 1.4 IMPRESSION: No evidence of ischemia
--- NOTE | 2019-04-23 00:02 | DIS ---
DATE OF ADMISSION: 04/20/2019 DATE OF DISCHARGE: 04/21/2019 ADMITTING ATTENDING: Misbah Andrew MD DISCHARGE ATTENDING: Misbah Andrew MD RESIDENT: Jayy Jones DO CONSULTS: None. PROCEDURES PERFORMED: None. IMAGING: Chest x-ray findings, no acute cardiopulmonary abnormality. Nuclear stress test findings, no evidence of ischemia. PRIMARY DIAGNOSIS: Chest pain of unclear etiology, history of atrial fibrillation. SECONDARY DIAGNOSIS: Urinary retention, bipolar disorder. DISCHARGE MEDICATIONS: 1. Anastrozole 1 mg daily. 2. Rosuvastatin 10 mg at bedtime. 3. Amiodarone 200 mg daily. 4. Eliquis 5 mg b.i.d. 5. Quetiapine 50 mg at bedtime. 6. Buspirone 15 mg b.i.d. 7. Alendronate 70 mg q.7 days. HISTORY OF PRESENT ILLNESS AND HOSPITAL COURSE: 88-year-old female presenting to the ED with complaints of acute onset of shortness of breath and chest pain. The patient has a history of atrial fibrillation and last week went in for her 4th cardioversion. The patient stated she has felt well since then and to her knowledge has remained in normal sinus rhythm. The patient noted that her symptoms that she experienced prior to admission were similar to that when she develops atrial fibrillation with RVR. She described the pain as a tightness and associated with shortness of breath but denied any diaphoresis, nausea, vomiting, diarrhea, or lightheadedness. In the ED, the patient received 325 mg of aspirin, and EKG shows normal sinus rhythm with no ST or T-wave changes and initial troponin of 0.019. The patient was subsequently admitted to the hospital for cardiac rule out. The following morning, the patient stated that she had no further chest pain and telemetry showed that the patient remained in normal sinus rhythm overnight. The following morning, the patient had a nuclear stress test performed, which showed no ischemia. At the time of discharge, the patient continued to be asymptomatic with stable vitals. She is recommended to continue her home medications and follow up with her PCP within the next seven days. DISCHARGE INSTRUCTIONS: 1. Location: Home. 2. Diet: Heart healthy. 3. Activity: As tolerated. 4. Followup: PCP, [facility] Dr. Chavez within 7 days. Job ID: [id number]
== END 2019-04-21 15:55 | disposition home or self-care (01) ==
LOC: ERS 10:40 → 2SW 15:37
PROVIDERS: ADMIT Student in an Organized Health Care Education/Training Program; ATTEND Student in an Organized Health Care Education/Training Program
DX: R07.9 Chest pain, unspecified (principal); F31.9 Bipolar disorder, unspecified; I10 Essential (primary) hypertension; R33.9 Retention of urine, unspecified; Z79.01 Long term (current) use of anticoagulants; Z79.899 Other long term (current) drug therapy; Z98.890 Other specified postprocedural states; Z86.79 Personal history of other diseases of the circulatory system
CPT/HCPCS: 71045; 78452; 80053; 80061; 83880; 84484 ×2; 85025; 93017; 99285; A9500; G0378 ×3; G0463; 36415; 99211; J0153

== ENCOUNTER 2019-04-30 12:14 | Observation (INO) | payer MEDICARE, OTHER ==
--- NOTE | 2019-04-30 12:41 | RAD ---
Chest AP view INDICATION: History of atrial fibrillation and atrial flutter COMPARISON: Prior examination dated April 20, 2019 FINDINGS: Lungs:There are new regions of subsegmental atelectasis within the right upper lobe and left lower lo be. This can be seen with a bronchitis or bronchiolitis. Recommend correlation. No airspace consolidation is evident. Cardiac silhouette:The cardiomediastinal silhouette appears within normal limits. Pulmonary vasculature:Normal Pleural spaces:No pleural effusion or pneumothorax is demonstrated. Upper abdomen:No abnormality seen. Osseous structures: No acute osseous abnormality. Additional findings:Surgical clips of the right axillary region are stable. IMPRESSION: New regions of subsegmental atelectasis within the right upper lobe and left lower lobe a re nonspecific but can be seen with airways disease such as a bronchitis or bronchiolitis. Recommend correlation. No airspace consolidation to suggest pneumonia. There is no radiographic evide nce to suggest cardiac dysfunction.
[2019-04-30 13:20] LABS: #Basophils 0.1 thou/uL (0.0-0.2); #Eosinphils 0.3 thou/uL (0.0-0.7); #Monocytes 0.8 thou/uL (0.11-0.59); #Neutrophils 6.1 thou/uL (1.40-6.50); %Basophils 0.6 % (0.0-1.0); %Eosinophils 3.4 % (0.0-10.0); %Lymphocytes 12.6 % (21.0-51.0); %Monocytes 10.1 % (0.0-10.0); %Neutrophils 73.2 % (42.0-75.0); Hemoglobin 13.7 g/dL (12.0-16.0); Mean Corpuscular HGB CONC 33.1 g/dL (32.0-36.0); Mean Corpuscular Hemoglobin 32.9 pg (27.0-31.0); Mean Corpuscular Volume 99.6 fL (78.0-98.0); Mean Platelet Volume 9.2 fL (7.4-10.4); Platelet Count 234 thou/uL (130-400); RBC Distribution Width 11.8 % (11.5-14.5); Red Blood Cell (RBC) Count 4.16 mill/uL (4.20-5.40); White Blood Cell (WBC) Count 8.3 thou/uL (4.8-10.8)
[2019-04-30] MEDS ORDERED: Aspirin Chewable 81 MG TAB ONE ×2 (13:26→14:43)
[2019-04-30 13:44] LABS: ALT (SGPT) 17 U/L (8-55); AST (SGOT) 19 U/L (5-34); Albumin 4.4 g/dL (3.4-4.8); Alkaline Phosphatase 73 U/L (40-110); Anion Gap 12 mmol/L (10-20); BUN (Urea Nitrogen) 20 mg/dL (9.8-20.1); CK (CPK) 76 U/L (29-168); Calc. Creatinine Clearance 0 mL/min (70-130); Calcium 10.1 mg/dL (7.8-10.44); Carbon Dioxide 28 mmol/L (23-31); Chloride 106 mmol/L (98-107); Estimated GFR-MDRD 60; Globulin 2.8 g/dL (2.4-3.5); Glucose 115 mg/dL (83-110); Lipase 19 U/L (8-78); Potassium 3.8 mmol/L (3.5-5.1); Protein, Total 7.2 g/dL (6.0-8.3); Sodium 142 mmol/L (136-145)
[2019-04-30 13:52] LABS: Bilirubin Negative (Negative); Blood, Urine Negative (Negative); Clarity Turbid (Clear); Glucose, Urine (Dipstick) Normal (Negative); Leukocyte 250 Leu/uL (Negative); Nitrite 2+ (Negative); Protein, Urine (Dipstick) 30 mg/dL (Neg-Trace); RBC/HPF 0-3 HPF (0-3); Squamous Epithelial 0-3 HPF (0-3); Urobilinogen Normal mg/dL (Less than 2)
[2019-04-30 14:12] LABS: Bacteria/HPF 2+ HPF (None Seen); Triple Phosphate Crystal 1+ HPF (None Seen)
--- NOTE | 2019-04-30 14:18 | PDOC.FPRHP ---
- History of Present Illness Chief Complaint: Sent from clinic History of Present Illness: Ms. King presents to the ED after she went to see her PCP in clinic today, Dr. Chavez, and was noted to have an irregular heart rate. Upon further questioning she complained of chest discomfort and generalized weakness. He recommended she come to the ED to be evaluated. She states that she was just discharged from the hospital 04/21/2019 after being admitted for chest pain. At that time she had a stress test done that was negative. She states she has a longstanding history of atrial fibrillation and has had 4 cardioversions in the past. ED Course: Rocephin, ASA - Allergies/Adverse Reactions Allergies Allergy/AdvReac Type Severity Reaction Status Date / Time No Known Drug Allergies Allergy Verified 04/14/19 10:24 - Home Medications Medication Instructions Recorded Confirmed Type Anastrozole 1 mg PO DAILY 03/21/16 04/30/19 History Rosuvastatin Calcium 10 mg PO HS 03/21/16 04/30/19 History Amiodarone [Cordarone] 200 mg PO DAILY 09/22/18 04/30/19 History Apixaban [Eliquis] 5 mg PO BID tab 10/06/18 04/30/19 Rx QUEtiapine Fumarate [Seroquel] 1 tab PO HS 04/14/19 04/30/19 History busPIRone HCl [Buspirone HCl] 1 tab PO BID 04/14/19 04/30/19 History Alendronate Sodium [Fosamax] 70 mg PO Q7D 04/20/19 04/30/19 History - History PMHx: Afib, HTN, breast cancer, Bipolar disorder, urinary retention PSHx: Lumpectomy right breast, appendectomy, hysterectomy, Cholecystectomy, Ex lap, Cardioversion x4 total FHx: noncontributory Social: Denies alcohol, drug, or tobacco use. Patient lives in independent living at [place]. - Review of Systems General: denies: fever/chills, weight/appetite/sleep changes, night sweats Eyes: denies: eye pain, vision changes ENT: denies: nasal congestion, rhinorrhea Respiratory: denies: cough, congestion, shortness of breath Cardiovascular: reports: chest pain. denies: palpitation, edema, paroxysmal nocturnal dyspnea, orthopnea Gastrointestinal: denies: nausea, vomiting, diarrhea, constipation Genitourinary: denies: dysuria, polyuria Skin: denies: rashes, lesions Musculoskeletal: denies: tenderness, stiffness Neurological: reports: weakness. denies: numbness, syncope, seizure - Vital signs Selected Entries 04/30/19 16:44 Temperature 98.6 F Pulse Rate 86 Blood Pressure 162/88 H [Semi-Fowlers] Respiratory 16 Rate O2 Sat by Pulse 96 Oximetry Oxygen Delivery Room Air Method - Physical Exam Constitutional: NAD, awake, alert and oriented, well developed HEENT: normocephalic and atraumatic, PERRLA, EOMI, conjunctiva clear, grossly normal vision, grossly normal hearing, MMM Neck: supple, FROM, trachea midline Chest: no-tender to palpation Heart: normal S1/S2, no murmurs/rubs/gallops, pulses present -Heart: Irregularly irregular Lungs: CTAB, no respiratory distress, good air movement, no rales/rhonchi, no wheezing Abdomen: soft, non-tender, bowel sounds present Musculoskeletal: normal structure, normal tone Neurological: no focal deficit, CN II-XII intact Skin: no rash/lesions, good turgor, capillary refill <2 seconds Heme/Lymphatic: no unusual bruising or bleeding, no purpura, no petechia Psychiatric: normal mood and affect, good judgment and insight, intact recent and remote memory FMR H&P: Results - Labs Result Diagrams: 04/30/19 16:08 04/30/19 16:08 Lab results: WBC 8.3 thou/uL (4.8-10.8) 04/30/19 12:50 Hgb 13.7 g/dL (12.0-16.0) 04/30/19 12:50 Hct 41.5 % (36.0-47.0) 04/30/19 12:50 MCV 99.6 fL (78.0-98.0) H 04/30/19 12:50 Plt Count 234 thou/uL (130-400) 04/30/19 12:50 Neutrophils % 73.2 % (42.0-75.0) 04/30/19 12:50 Sodium 142 mmol/L (136-145) 04/30/19 12:50 Potassium 3.8 mmol/L (3.5-5.1) 04/30/19 12:50 Chloride 106 mmol/L (98-107) 04/30/19 12:50 Carbon Dioxide 28 mmol/L (23-31) 04/30/19 12:50 BUN 20 mg/dL (9.8-20.1) 04/30/19 12:50 Creatinine 0.89 mg/dL (0.6-1.1) 04/30/19 12:50 Glucose 115 mg/dL (83-110) H 04/30/19 12:50 Calcium 10.1 mg/dL (7.8-10.44) 04/30/19 12:50 Total Bilirubin 1.0 mg/dL (0.2-1.2) 04/30/19 12:50 AST 19 U/L (5-34) 04/30/19 12:50 ALT 17 U/L (8-55) 04/30/19 12:50 Alkaline Phosphatase 73 U/L (40-110) 04/30/19 12:50 Creatine Kinase 76 U/L (29-168) 04/30/19 12:50 B-Natriuretic Peptide 196.3 pg/mL (0-100) H 04/30/19 12:50 Serum Total Protein 7.2 g/dL (6.0-8.3) 04/30/19 12:50 Albumin 4.4 g/dL (3.4-4.8) 04/30/19 12:50 Lipase 19 U/L (8-78) 04/30/19 12:50 Urine Ketones Negative mg/dL (Negative) 04/30/19 13:35 Urine Blood Negative (Negative) 04/30/19 13:35 Urine Nitrite 2+ (Negative) A 04/30/19 13:35 Ur Leukocyte Esterase 250 Patti/uL (Negative) A 04/30/19 13:35 Urine RBC 0-3 HPF (0-3) 04/30/19 13:35 Urine WBC 4-6 HPF (0-3) A 04/30/19 13:35 Ur Squamous Epith Cells 0-3 HPF (0-3) 04/30/19 13:35 Urine Bacteria 2+ HPF (None Seen) A 04/30/19 13:35 - EKG Interpretation EKG: Atrial fibrillation without RVR FMR H&P: A/P - Problem List (1) Atrial fibrillation Current Visit: No Status: Acute Code(s): I48.91 - UNSPECIFIED ATRIAL FIBRILLATION Qualifiers: Atrial fibrillation type: chronic (2) Bipolar disorder Current Visit: No Status: Acute Code(s): F31.9 - BIPOLAR DISORDER, UNSPECIFIED (3) CKD (chronic kidney disease) stage 3, GFR 30-59 ml/min Current Visit: No Status: Acute Code(s): N18.3 - CHRONIC KIDNEY DISEASE, STAGE 3 (MODERATE) (4) Chest pain of uncertain etiology Current Visit: No Status: Acute Code(s): R07.89 - OTHER CHEST PAIN (5) Urinary retention Current Visit: No Status: Acute Code(s): R33.9 - RETENTION OF URINE, UNSPECIFIED - Plan Atrial fibrillation, recurrent - EP contacted from clinic, they are planning to do pacemaker placement tomorrow morning. NPO after 00:00 and hold eliquis and amiodarone. - Not in RVR - Will closely monitor VS. H/o frequent UTI, chronic indwelling love - UA dirty. Will culture. - Love due to be replaced, patient had appt with Michelle next week. Will contact tomorrow for recommendations. HFpEF - Echo on 09/09/18 shows LVEF of 60-65% with filling defect - No signs/symptoms of fluid overload. CXR showing no acute process. CKD 3 - Appears baseline, continue to monitor Bipolar - Continue home Seroquel, stable. HLD - Continue home Rosuvastatin Disposition/LOS: Dispo: Stable, inpatient Code: Full Prophylaxis: SCDs Diet: HH Fluids: SL Disposition: cardioversion today, dc pending clinical course PCP: Dr. Chavez, [facility] FMR H&P: Upper Level - Pertinent history Ms King is a 88yo female with pmh of afib with cardioversion last week presented to [facility] today for hospital follow up and reported dizziness and shortness of breath. She was found to be in aflutter on EKG. Hx of 4 cardioversions. Denies chest pain. Reports shortness of breath with minimal exertion. EKG in clinic: Atrial Flutter at 75bpm. QRS Duration: 86. QT Interval: 414. No ST or T wave changes noted. 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 Appears to be variable 3:1-2:1 atrial flutter - Plan Date/Time: 04/30/19 1415 PE: General: NAD CV: Irregularly irregular Pulm: CTA b/l no resp distress Abd: Soft, nontender Extremities: No edema A/P: Aflutter - Dizziness and SOB. EKG shows Afib rate controlled. Trop neg. BNP slightly elevated. Pts PCP discussed case with EP INTERMEDIATE PROJECT MANAGER. Dr Berry familiar with case, out of town. Will place consult for EP. Will order Mg, Phos and TSH. Monitor on tele. NPO at midnight pending EP recs. Asymptomatic Bacteriuria - Received Ceftriaxone x1 in ED. As patient is asymptomatic no need to continue treatment. Urine cx pending, ordered in ED. I, Domenica Loja, have evaluated this patient and agree with findings/plan as outlined by recording studio internship resident. Pertinent changes/additions are listed here. Addendum - Attending - Attending Attestation Date/Time: 05/01/19 0804 I personally evaluated the patient and discussed the management with Dr. Arita yesterday afternoon. I agree with the History, Examination, Assessment and Plan documented above with any addition or exceptions noted below.
[2019-04-30] MEDS ORDERED: Acetaminophen 325 MG TAB PO PRN (14:37)
[2019-04-30] MEDS ORDERED: cefTRIAXone\\ROCEPHIN 1 GM VIAL ONE (14:43)
[2019-04-30 15:39] LABS: Magnesium 1.8 mg/dL (1.6-2.6); Phosphorus 3.8 mg/dL (2.3-4.7)
[2019-04-30 16:17] LABS: #Basophils 0.1 thou/uL (0.0-0.2); #Eosinphils 0.3 thou/uL (0.0-0.7); #Monocytes 0.8 thou/uL (0.11-0.59); #Neutrophils 5.8 thou/uL (1.40-6.50); %Basophils 0.7 % (0.0-1.0); %Eosinophils 3.4 % (0.0-10.0); %Lymphocytes 12.3 % (21.0-51.0); %Monocytes 9.9 % (0.0-10.0); %Neutrophils 73.7 % (42.0-75.0); Hemoglobin 12.6 g/dL (12.0-16.0); Mean Corpuscular Hemoglobin 32.9 pg (27.0-31.0); Mean Corpuscular Volume 99.7 fL (78.0-98.0); Mean Platelet Volume 8.8 fL (7.4-10.4); Platelet Count 210 thou/uL (130-400); RBC Distribution Width 11.8 % (11.5-14.5); Red Blood Cell (RBC) Count 3.81 mill/uL (4.20-5.40); White Blood Cell (WBC) Count 7.9 thou/uL (4.8-10.8)
[2019-04-30 16:34] LABS: Anion Gap 10 mmol/L (10-20); BUN (Urea Nitrogen) 19 mg/dL (9.8-20.1); Calc. Creatinine Clearance 0 mL/min (70-130); Calcium 9.2 mg/dL (7.8-10.44); Carbon Dioxide 28 mmol/L (23-31); Chloride 106 mmol/L (98-107); Estimated GFR-MDRD 62; Glucose 113 mg/dL (83-110); Potassium 4.1 mmol/L (3.5-5.1); Sodium 140 mmol/L (136-145)
[2019-04-30 17:34] VITALS: BMI 27.6
[2019-04-30] MEDS: busPIRone HCl 10 MG TAB PO SCH (20:34)
[2019-04-30] MEDS ORDERED: Rosuvastatin 10 MG TAB PO SCH (21:00)
[2019-05-01 08:28] VITALS: TEMP 97.5
--- NOTE | 2019-05-01 08:58 | PDOC.FM ---
- Subjective Subjective: Ms. King is doing well this morning. She has no complaints. She is scheduled to have a procedure today. - Objective MAR Reviewed: Yes Vital Signs & Weight: Vital Signs (12 hours) Temp Pulse Resp BP Pulse Ox 05/01/19 07:47 97.5 F L 60 14 92/51 L 95 05/01/19 03:04 97.9 F 55 L 18 113/57 L 93 L Weight Weight 77.564 kg I&O: 04/30/19 05/01/19 05/02/19 06:59 06:59 06:59 Intake Total 450 Output Total 1000 Balance -550 Result Diagrams: 04/30/19 16:08 04/30/19 16:08 Phys Exam - Physical Examination Constitutional: NAD HEENT: PERRLA, moist MMs Neck: supple, full ROM Respiratory: no wheezing, no rales, no rhonchi, clear to auscultation bilateral Cardiovascular: no significant murmur, no rub Irreg irreg rhythm, normal rate Gastrointestinal: soft, non-tender Musculoskeletal: no edema, pulses present Neurological: non-focal, moves all 4 limbs Psychiatric: normal affect, A&O x 3 Skin: no rash, normal turgor Dx/Plan (1) Atrial fibrillation Code(s): I48.91 - UNSPECIFIED ATRIAL FIBRILLATION Status: Acute Qualifiers: Atrial fibrillation type: chronic (2) Bipolar disorder Code(s): F31.9 - BIPOLAR DISORDER, UNSPECIFIED Status: Acute (3) CKD (chronic kidney disease) stage 3, GFR 30-59 ml/min Code(s): N18.3 - CHRONIC KIDNEY DISEASE, STAGE 3 (MODERATE) Status: Acute (4) Chest pain of uncertain etiology Code(s): R07.89 - OTHER CHEST PAIN Status: Acute (5) Urinary retention Code(s): R33.9 - RETENTION OF URINE, UNSPECIFIED Status: Acute - Plan Plan: Atrial fibrillation, recurrent - EP contacted from clinic, they are planning to do pacemaker placement this morning. Will await their recommendations. - Not in RVR - Will closely monitor VS. Aymptomatic bacteruria, h/o frequent UTI, chronic indwelling love - UA dirty. Culture preliminary is growing proteus. Patient is asymptomatic - Love due to be replaced, patient had appt with Michelle next week. - Contacted [facility] this morning, will await recommendations. HFpEF - Echo on 09/09/18 shows LVEF of 60-65% with filling defect - No signs/symptoms of fluid overload. CXR showing no acute process. CKD 3 - Appears baseline, continue to monitor Bipolar - Continue home Seroquel, stable. HLD - Continue home Rosuvastatin Disposition/LOS: Dispo: Stable, inpatient Code: Full Prophylaxis: SCDs Diet: HH Fluids: SL Disposition: cardioversion today, dc pending clinical course PCP: TANA Gomez Addendum - Attending - Attending Attestation Date/Time: 05/01/19 1128 I personally evaluated the patient and discussed the management with Dr. Arita. I agree with the History, Examination, Assessment and Plan documented above with any addition or exceptions noted below. The patient is doing well. She was to have a procedure but EP has decided to stop amiodarone and pt can d/c home with outpt follow-up.
--- NOTE | 2019-05-01 09:30 | PDOC.BPN ---
- Brief Progress Note Contacted Dr. Martinez this morning in regards to the patient's love catheter and urinalysis results. Her recommendation at this time is to have nursing change out the love while hospitalized and for the patient to follow up outpatient after d/c. As the patient is asymptomatic and a known colonizer, her recommendation was to not treat the UTI at this time.
[2019-05-01] MEDS: busPIRone HCl 10 MG TAB PO SCH (09:32)
[2019-05-01] MEDS ORDERED: Apixaban 5 MG TAB PO SCH ×2 (09:45→21:00)
[2019-05-01 12:15] VITALS: BP 98/50
--- NOTE | 2019-05-01 18:45 | DIS ---
DATE OF ADMISSION: 04/30/2019 DATE OF DISCHARGE: 05/01/2019 ADMITTING ATTENDING: Donta Obrien MD DISCHARGE ATTENDING: Danay Haines MD RESIDENT: Sri Arita MD CONSULT: Electrophysiology, Dr. Gamino. PROCEDURES: None. PRIMARY DIAGNOSIS: Atrial fibrillation, recurrent. SECONDARY DIAGNOSES: 1. Chronic indwelling Dunaway catheter. 2. Frequent urinary tract infections. 3. Heart failure with preserved ejection fraction. 4. Chronic kidney disease, stage 3. 5. Bipolar disorder. 6. Hyperlipidemia. DISCHARGE MEDICATIONS: 1. Fosamax. 2. Anastrozole. 3. Buspirone. 4. Quetiapine. 5. Rosuvastatin. 6. Eliquis. DISCONTINUED MEDICATIONS: Amiodarone. HISTORY OF PRESENT ILLNESS AND HOSPITAL COURSE: Ms. King is a pleasant 88-year-old female with a longstanding history of chronic atrial fibrillation for which she has underwent 4 prior cardioversions in the past. She was being seen by her PCP, Dr. Chavez in clinic for a regular hospital followup after her last hospitalization, and her heart rate was noted to be elevated and she was complaining of chest pain and generalized weakness. An EKG done in clinic showed that she was in aflutter versus atrial fibrillation and Dr. Chavez called the barrel and receiver aligner for recommendations. At that time, it was recommended that she will be admitted to the hospital in the tele observation for potential procedure to convert her out of atrial fibrillation upon arrival. At the time of admission, the plan was to do a pacemaker placement and AV delal ablation. On the day after admission, however, the barrel and receiver aligner, Dr. Gamino saw the patient on the second day of admission and decided that her symptoms were probably not likely due to atrial fibrillation and recommended that she follow up as outpatient with Dr. Berry within 6 weeks. She was restarted on her Eliquis and her amiodarone was discontinued. She was discharged home. DISPOSITION: Stable. DISCHARGE INSTRUCTIONS: 1. Location: Home. 2. Diet: Heart healthy. 3. Activity: Ad yamilet. 4. Followup: Follow up with Dr. Berry within 6 weeks and primary care physician within 1 week. Job ID: [id number]
--- NOTE | 2019-05-03 14:35 | PRG ---
DATE OF SERVICE: 05/01/2019 REASON FOR VISIT: Shortness of breath. HISTORY OF PRESENT ILLNESS: Jazmin King is a very pleasant 88-year-old lady, who has a history of atrial fibrillation. She reports that this was recognized last summer when she was placed on amiodarone. At that time, she complained of shortness of breath, but does not report having rapid palpitations. She has been on amiodarone for a period of time, dosing ranging between 200 mg a day and 400 a day for a period of time, and has undergone 3 cardioversions. She has not been able to maintain sinus mechanism. Her most recent cardioversion was a couple of weeks ago. Despite being on amiodarone for 4 to 5 months at that time, she still has not been able to maintain sinus mechanism and her atrial fibrillation has returned. We are asked to see her for other options for treating her atrial fibrillation. She denies TIAs, strokes, or other neurologic symptoms. She has been able to take Eliquis at reduced dosing. She reports shortness of breath and some dyspnea on exertion, but does not have shortness of breath at rest. Denies pedal edema. She does not have any orthopnea or paroxysmal nocturnal dyspnea. Cardiovascular evaluation has included well preserved left ventricular function in the past. She at times describes some chest discomfort, but does not describe typical angina. MEDICATIONS: Include: 1. Amiodarone currently 200 a day. 2. Eliquis 2.5 mg b.i.d. 3. She is on buspirone. 4. Crestor. 5. Alendronate. PAST MEDICAL HISTORY: Notable for previous breast cancer treated with radiation. She has a history of frequent UTIs, hypertension. She has a history of bipolar disorder by report. SOCIAL HISTORY: She denies alcohol or illicit drug use. She lives in a long-term care facility. REVIEW OF SYSTEMS: Negative for fever, chills, night sweats. No change in vision or hearing. No recent TIAs or strokes. No other active neurologic disease. Denies claudication. No recent cough or hemoptysis. Denies angina as described above. No syncope. No abdominal pain, melena, or hematochezia. No frequency or dysuria. No significant arthritis, arthralgias, joint swelling, or gout. No depression or anxiety. Bipolar disorder as described above. No rashes. PHYSICAL EXAMINATION: GENERAL: She is a well-developed, well-nourished, quite spry, elderly lady, sitting comfortably up in bed. VITAL SIGNS: Heart rate is in the 60s to 70s, blood pressure is in the 115/80 range, respirations are 14. NECK: Supple. CHEST: Clear. Respiratory effort is normal. CARDIAC: She has irregular rhythm, but well controlled. ABDOMEN: Soft, benign. EXTREMITIES: Warm and well perfused without clubbing, cyanosis, or edema. NEUROLOGIC: Grossly nonfocal. She is alert and oriented x4. LABORATORY DATA: Her EKG is reviewed. She has what appears to be probable atrial fibrillation at times and this appears still partially organized into what may represent an atrial flutter. Ventricular rate is generally irregular, but under good control. IMPRESSION: 1. Recurrent atrial fibrillation despite long-term amiodarone use and recent cardioversions. 2. Anticoagulation with Eliquis. 3. Preserved left ventricular function. RECOMMENDATIONS: I had a lengthy discussion with Ms. King today. Discussed with her in reality the fact that she has been on amiodarone since August to September by her report and has had 3 cardioversions and she is not holding sinus mechanism. It is unlikely amiodarone is going to hold sinus mechanism at this point , it is not being effective. She is taking the risk of medication without any benefit, it needs to be discontinued. It is not clear to me whether she has rapid ventricular response that had been discussed yesterday whether she might be a candidate for an AV junctional ablation and permanent pacing to help with symptoms, but as long as her ventricular rate response is well controlled, I do not think that strategy is actually going to provide any specific benefit and in fact could make things worse through dyssynchrony caused by persistent pacing. At the same time, the side effects of amiodarone could represent shortness of breath, some fatigability, and certainly there can be some gait disturbances occur as well. I think at this point discontinuance of the amiodarone again makes sense for that reason. We will just need to follow her rate response to see whether or not she becomes more tachycardic. If she develops tachycardia and it is either refractory or symptomatic or symptoms as a result of trying to rate control, then that's where pacing and AV junctional ablation may be more successful for her. Finally, we did discuss the role of left atrial ablation for atrial fibrillation. I think unfortunately given her history of its persistence and her age, I think there is going to be some risk to doing that procedure. Not that it could not be done, but it would have to be done carefully and I think very likely would require a second procedure in order to largely provide her sinus mechanism. I think that presents additional risk for her and I do not think that it is an appropriate approach. I do not think that a typical flutter ablation is going to solve the problem either given the appearance of her EKG. Because she is not feeling poorly and she confirms that today, I will stop her amiodarone, let her return to her facility, and then I will have her follow up with Dr. Berry here in [place] in approximately 2 weeks and perhaps evaluate for rate control and other aspects. Certainly, it has been my pleasure seeing this very pleasant lady today. She seems to be quite happy with the decision. Job ID: [id number]
== END 2019-05-01 14:48 | disposition home or self-care (01) ==
LOC: ERS 12:14 → 2SW 16:48
PROVIDERS: ADMIT Family Medicine; ATTEND Family Medicine
DX: I48.20 Chronic atrial fibrillation, unspecified (principal); I48.92 Unspecified atrial flutter; I13.0 Hypertensive heart and chronic kidney disease with heart failure and stage 1 through stage 4 chronic kidney disease, or unspecified chronic kidney disease; N18.3 Chronic kidney disease, stage 3 (moderate); I50.30 Unspecified diastolic (congestive) heart failure; F31.9 Bipolar disorder, unspecified; E78.5 Hyperlipidemia, unspecified; R33.9 Retention of urine, unspecified; R82.71 Bacteriuria; I44.1 Atrioventricular block, second degree; Z87.440 Personal history of urinary (tract) infections; Z79.01 Long term (current) use of anticoagulants; Z79.811 Long term (current) use of aromatase inhibitors; Z79.899 Other long term (current) drug therapy; Z79.83 Long term (current) use of bisphosphonates; Z96.0 Presence of urogenital implants
CPT/HCPCS: 36415; 71045; 80053; 81003; 81015; 82550; 83690; 83735; 83880; 84100; 84443; 84484; 85025; 87077; 87086; 87186; 93005; 94760; 96365; G0378; J0696

== ENCOUNTER 2019-07-16 23:45 | Emergency (ER) | payer MEDICARE, OTHER ==
[2019-07-16] MEDS ORDERED: Adacel (T-DAP) 0.5 ML SYRINGE ONE (23:53)
[2019-07-16] MEDS ORDERED: Morphine 4 MG/ML VIAL ONE (23:57)
[2019-07-16] MEDS ORDERED: Ondansetron PF 4 MG/2 ML Vial ONE (23:58)
[2019-07-17 00:29] LABS: Bacteria/HPF 1+ HPF (None Seen); Bilirubin Negative (Negative); Blood, Urine Negative (Negative); Clarity Turbid (Clear); Glucose, Urine (Dipstick) Normal (Negative); Leukocyte 500 Leu/uL (Negative); Nitrite Negative (Negative); Protein, Urine (Dipstick) 30 mg/dL (Neg-Trace); RBC/HPF 0-3 HPF (0-3); Squamous Epithelial 0-3 HPF (0-3); Urobilinogen Normal mg/dL (Less than 2); WBC/HPF 21-50 HPF (0-3)
[2019-07-17 00:43] LABS: #Eosinphils 0.4 thou/uL (0.0-0.7); #Lymphocytes 1.6 thou/uL (1.20-3.40); #Monocytes 0.7 thou/uL (0.11-0.59); #Neutrophils 6.5 thou/uL (1.40-6.50); %Basophils 0.5 % (0.0-1.0); %Eosinophils 3.9 % (0.0-10.0); %Lymphocytes 17.5 % (21.0-51.0); %Monocytes 7.2 % (0.0-10.0); %Neutrophils 70.8 % (42.0-75.0); Hemoglobin 14.5 g/dL (12.0-16.0); Mean Corpuscular Hemoglobin 34.7 pg (27.0-31.0); Platelet Count 203 thou/uL (130-400); RBC Distribution Width 12.6 % (11.5-14.5); Red Blood Cell (RBC) Count 4.18 mill/uL (4.20-5.40); White Blood Cell (WBC) Count 9.1 thou/uL (4.8-10.8)
[2019-07-17 01:06] LABS: ALT (SGPT) 20 U/L (8-55); AST (SGOT) 21 U/L (5-34); Albumin 4.6 g/dL (3.4-4.8); Alkaline Phosphatase 58 U/L (40-110); Anion Gap 14 mmol/L (10-20); BUN (Urea Nitrogen) 21 mg/dL (9.8-20.1); Bilirubin, Total 1.3 mg/dL (0.2-1.2); CK (CPK) 73 U/L (29-168); Calc. Creatinine Clearance 0 mL/min (70-130); Calcium 10.3 mg/dL (7.8-10.44); Carbon Dioxide 27 mmol/L (23-31); Chloride 101 mmol/L (98-107); Estimated GFR-MDRD 47; Globulin 2.8 g/dL (2.4-3.5); Glucose 126 mg/dL (83-110); Protein, Total 7.4 g/dL (6.0-8.3); Sodium 138 mmol/L (136-145)
== END 2019-07-17 01:17 | disposition short-term general hospital (02) ==
LOC: ERS 23:45
DX: T21.22XA Burn of second degree of abdominal wall, initial encounter (principal); T28.3XXA Burn of internal genitourinary organs, initial encounter; T24.212A Burn of second degree of left thigh, initial encounter; T24.211A Burn of second degree of right thigh, initial encounter; I48.91 Unspecified atrial fibrillation; I10 Essential (primary) hypertension; F31.9 Bipolar disorder, unspecified; Z79.899 Other long term (current) drug therapy; Z79.01 Long term (current) use of anticoagulants; X10.0XXA Contact with hot drinks, initial encounter
CPT/HCPCS: 80053; 82550; 85025; 87077; 87086; 87186; 90471; 90715; 96361; 96374; 96375; 99285; J2270; J2405; 81003; 81015

== ENCOUNTER 2019-07-21 19:39 | Emergency (ER) | payer MEDICARE, OTHER ==
[~2019-07-21 19:39] MED LIST changes: +Iopamidol 370 76% 100 ML VIAL ONE; -PROPOFOL 20 ML ONE
[2019-07-21] MEDS ORDERED: Acetaminophen 500 MG TAB ONE ×2 (19:54)
[2019-07-21 20:30] LABS: #Eosinphils 0.5 thou/uL (0.0-0.7); #Lymphocytes 0.9 thou/uL (1.20-3.40); #Neutrophils 8.2 thou/uL (1.40-6.50); %Basophils 0.4 % (0.0-1.0); %Lymphocytes 8.4 % (21.0-51.0); %Monocytes 9.6 % (0.0-10.0); %Neutrophils 76.5 % (42.0-75.0); Hemoglobin 13.2 g/dL (12.0-16.0); Mean Corpuscular Hemoglobin 33.5 pg (27.0-31.0); Mean Platelet Volume 9.3 fL (7.4-10.4); Platelet Count 200 thou/uL (130-400); RBC Distribution Width 12.2 % (11.5-14.5); Red Blood Cell (RBC) Count 3.95 mill/uL (4.20-5.40); White Blood Cell (WBC) Count 10.7 thou/uL (4.8-10.8)
[2019-07-21 20:42] LABS: ALT (SGPT) 17 U/L (8-55); AST (SGOT) 18 U/L (5-34); Albumin 3.7 g/dL (3.4-4.8); Alkaline Phosphatase 56 U/L (40-110); Anion Gap 13 mmol/L (10-20); BUN (Urea Nitrogen) 9 mg/dL (9.8-20.1); Bilirubin, Total 1.2 mg/dL (0.2-1.2); Calc. Creatinine Clearance 0 mL/min (70-130); Calcium 9.4 mg/dL (7.8-10.44); Carbon Dioxide 27 mmol/L (23-31); Chloride 103 mmol/L (98-107); Estimated GFR-MDRD 66; Globulin 2.8 g/dL (2.4-3.5); Glucose 120 mg/dL (83-110); Lipase 15 U/L (8-78); Protein, Total 6.5 g/dL (6.0-8.3); Sodium 139 mmol/L (136-145)
[2019-07-21 20:48] LABS: Bacteria/HPF None Seen HPF (None Seen); Bilirubin Negative (Negative); Blood, Urine Negative (Negative); Clarity Clear (Clear); Glucose, Urine (Dipstick) Normal (Negative); Leukocyte 75 Leu/uL (Negative); Nitrite Negative (Negative); Protein, Urine (Dipstick) 10 mg/dL (Neg-Trace); RBC/HPF 0-3 HPF (0-3); Renal Epithelial 0-3 HPF (None Seen); Squamous Epithelial 0-3 HPF (0-3); Urobilinogen Normal mg/dL (Less than 2); WBC/HPF 0-3 HPF (0-3)
--- NOTE | 2019-07-21 20:53 | RAD ---
SINGLE VIEW OF THE CHEST: 07/21/19 COMPARISON: 04/30/19 HISTORY: Constipation and left colon pain. FINDINGS: Single view of the chest shows an enlarged but stable cardiomediastinal silhouette. Increased interst itial markings are present. There is stable scarring in the right upper lobe. There is stable elevati on of the right hemidiaphragm. There is no evidence of consolidation, mass or pleural effusion. IMPRESSION: No evidence of acute cardiopulmonary disease. POS: DOROTHYA
--- NOTE | 2019-07-21 21:36 | CT ---
CT ABDOMEN AND PELVIS WITH CONTRAST: 07/21/19 COMPARISON: 10/03/18 HISTORY: Abdominal pain and cramping for several days with constipation. Left lower quadrant abdominal tendern ess. TECHNIQUE: Multiple contiguous axial images were obtained in a CT of the abdomen and pelvis with contrast. Sagit carlyle and coronal reformats were performed. FINDINGS: There is stable cysts in the liver measuring up to 5.9 cm in size. The gallbladder has been removed. There is stable enlargement of the common bile duct at 13 mm. This is likely a reservoir effect from prior cholecystectomy. There is a stable right renal cyst measuring 1.6 cm in size. The adrenal gland s, left kidney, spleen, and pancreas are unremarkable. No free air, free fluid, or stranding changes are seen in the abdomen or pelvis. Scattered diverticul a are seen in the colon. The small bowel is unremarkable. The patient is status post hysterectomy. A therosclerotic calcifications are seen in the aorta. No abdominal or pelvic lymphadenopathy are seen. A Dunaway catheter decompresses the urinary bladder. Degenerative changes are seen in the spine. The a bdominal wall soft tissues are unremarkable. The visualized inferior thorax is unremarkable. IMPRESSION: 1. No evidence of acute intra-abdominal/pelvic abnormality. 2. Hepatic cysts. 3. Right renal cyst. 4. Diverticulosis. POS: EAA
== END 2019-07-21 23:52 | disposition home or self-care (01) ==
LOC: ERS 19:39
DX: R10.32 Left lower quadrant pain (principal); I48.91 Unspecified atrial fibrillation; I10 Essential (primary) hypertension; F31.9 Bipolar disorder, unspecified; Z79.899 Other long term (current) drug therapy
CPT/HCPCS: 71045; 74177; 80053; 82274; 83605; 83690; 85025; 87040; 87086; 87804 ×2; 96360; 96361; 99284; Q9967; U0002; 36415; 81003; 81015; 87635

== ENCOUNTER 2019-10-26 21:39 | Observation (INO) | payer MEDICARE, OTHER ==
--- NOTE | 2019-10-26 22:50 | RAD ---
Exam: Chest one view HISTORY:Chest pain Comparison: 07/21/2019 FINDINGS: Cardiac silhouette:Stable cardiac silhouette. Stable calcification of the mitral annulus. Aorta: Unremarkable Pulmonary vessels: Normal Costophrenic angles: Clear LUNGS: Chronic lung parenchymal changes. No masses or consolidation. Stable linear density in the rig ht upper lobe. Pneumothorax: None Osseous abnormalities: None IMPRESSION: No acute cardiopulmonary process.
[2019-10-26 23:07] LABS: #Eosinphils 0.6 thou/uL (0.0-0.7); #Lymphocytes 0.9 thou/uL (1.20-3.40); #Monocytes 0.8 thou/uL (0.11-0.59); %Basophils 0.2 % (0.0-1.0); %Eosinophils 5.6 % (0.0-10.0); %Lymphocytes 7.6 % (21.0-51.0); %Monocytes 7.1 % (0.0-10.0); %Neutrophils 79.5 % (42.0-75.0); Hemoglobin 13.6 g/dL (12.0-16.0); Mean Corpuscular HGB CONC 33.6 g/dL (32.0-36.0); Mean Corpuscular Hemoglobin 33.5 pg (27.0-31.0); Mean Corpuscular Volume 99.8 fL (78.0-98.0); Mean Platelet Volume 8.5 fL (7.4-10.4); Platelet Count 207 thou/uL (130-400); RBC Distribution Width 12.2 % (11.5-14.5); Red Blood Cell (RBC) Count 4.05 mill/uL (4.20-5.40); White Blood Cell (WBC) Count 11.3 thou/uL (4.8-10.8)
[2019-10-26 23:31] LABS: ALT (SGPT) 24 U/L (8-55); AST (SGOT) 47 U/L (5-34); Albumin 3.7 g/dL (3.4-4.8); Alkaline Phosphatase 64 U/L (40-110); Anion Gap 13 mmol/L (10-20); BUN (Urea Nitrogen) 12 mg/dL (9.8-20.1); Bilirubin, Total 0.8 mg/dL (0.2-1.2); Calc. Creatinine Clearance 0 mL/min (70-130); Calcium 9.5 mg/dL (7.8-10.44); Carbon Dioxide 25 mmol/L (23-31); Chloride 102 mmol/L (98-107); Estimated GFR-MDRD 57; Globulin 2.6 g/dL (2.4-3.5); Glucose 147 mg/dL (83-110); Potassium 3.8 mmol/L (3.5-5.1); Protein, Total 6.3 g/dL (6.0-8.3); Sodium 136 mmol/L (136-145)
[2019-10-26 23:46] LABS: Lipase 1232 U/L (8-78)
[2019-10-27] MEDS ORDERED: Acetaminophen 500 MG TAB PO PRN (00:44)
[2019-10-27] MEDS ORDERED: Morphine 2 MG/ML SYRINGE SLOW IVP PRN (00:44)
[2019-10-27] MEDS ORDERED: Ondansetron ODT 4 MG TAB PO PRN (00:48)
[2019-10-27] MEDS ORDERED: Ondansetron PF 4 MG/2 ML Vial IVP PRN (00:48)
--- NOTE | 2019-10-27 04:06 | PDOC.FPRHP ---
- History of Present Illness Chief Complaint: abdominal pain History of Present Illness: Patient is an 89 yo femal, PMHx afib on OAC, HTN, & bipolar disorder who presented to the ER for sudden onset upper abdominal and back pain with associated nausea that began earlier on the evening of presentation. Per the patient she ate as sandwich for dinner and then "felt funny" so she laid down to get some rest and has sudden onset severe upper abdominal and back pain with associated nausea & SOB. She noted she was worried she was havig a heart attack and called 911. She denies vomiting, diarrhea, fever, cough, weakness. ED Course: On arrival to the ED she was noted to be in pain, basic bloodwork revealed lipase of 1232 & WBC of 11.6.The patient was given nitropaste which reportedly relieved her pain. - Allergies/Adverse Reactions Allergies Allergy/AdvReac Type Severity Reaction Status Date / Time No Known Drug Allergies Allergy Verified 10/27/19 18:44 - Home Medications Medication Instructions Recorded Confirmed Type Rosuvastatin Calcium 10 mg PO HS 03/21/16 10/27/19 History QUEtiapine Fumarate [Seroquel] 1 tab PO HS 04/14/19 10/27/19 History busPIRone HCl [Buspirone HCl] 1 tab PO BID 04/14/19 10/27/19 History Alendronate Sodium [Fosamax] 70 mg PO Q7D 04/20/19 10/27/19 History Amiodarone [Cordarone] 200 mg PO DAILY tab 10/28/19 Rx Apixaban [Eliquis] 2.5 mg PO BID tab 10/28/19 Rx Cephalexin [Keflex] 500 mg PO Q12H 2 Days #3 cap 10/28/19 Rx - History PMHx: Afib, Bipolar Disorder, HTN PSHx: Hysterectomy, Cholecystectomy, Lumpectomy R breast FHx: noncontributory Social: No smoking, alcohol or illicit drug use - Review of Systems General: denies: fever/chills, weight/appetite/sleep changes Eyes: denies: eye pain, vision changes ENT: denies: nasal congestion, rhinorrhea Respiratory: denies: cough, congestion Cardiovascular: reports: chest pain (epigastric "chest pain") Gastrointestinal: reports: nausea, constipation (chronic). denies: vomiting, diarrhea Genitourinary: denies: incontinence, dysuria Skin: denies: rashes, lesions Musculoskeletal: denies: pain, tenderness Neurological: denies: numbness, syncope - Vital signs BP: 128/82, Pulse: 80, Resp: 16, O2 sat: 98 on RA, Wt: 83.91kg - Physical Exam Constitutional: NAD, awake, alert and oriented HEENT: normocephalic and atraumatic, PERRLA Neck: supple, FROM Heart: RRR, no murmurs/rubs/gallops Lungs: CTAB, no respiratory distress Abdomen: soft, non-tender, bowel sounds present Musculoskeletal: normal structure, normal tone Neurological: no focal deficit, normal sensation Skin: no rash/lesions, good turgor Psychiatric: normal mood and affect, good judgment and insight FMR H&P: Results - Labs Result Diagrams: 10/27/19 05:39 10/27/19 05:39 Lab results: WBC 11.3 thou/uL (4.8-10.8) H 10/26/19 22:59 Hgb 13.6 g/dL (12.0-16.0) 10/26/19 22:59 Hct 40.4 % (36.0-47.0) 10/26/19 22:59 MCV 99.8 fL (78.0-98.0) H 10/26/19 22:59 Plt Count 207 thou/uL (130-400) 10/26/19 22:59 Neutrophils % 79.5 % (42.0-75.0) H 10/26/19 22:59 Sodium 136 mmol/L (136-145) 10/26/19 22:59 Potassium 3.8 mmol/L (3.5-5.1) 10/26/19 22:59 Chloride 102 mmol/L (98-107) 10/26/19 22:59 Carbon Dioxide 25 mmol/L (23-31) 10/26/19 22:59 BUN 12 mg/dL (9.8-20.1) 10/26/19 22:59 Creatinine 0.93 mg/dL (0.6-1.1) 10/26/19 22:59 Glucose 147 mg/dL (83-110) H 10/26/19 22:59 Calcium 9.5 mg/dL (7.8-10.44) 10/26/19 22:59 Total Bilirubin 0.8 mg/dL (0.2-1.2) 10/26/19 22:59 AST 47 U/L (5-34) H 10/26/19 22:59 ALT 24 U/L (8-55) 10/26/19 22:59 Alkaline Phosphatase 64 U/L (40-110) 10/26/19 22:59 Serum Total Protein 6.3 g/dL (6.0-8.3) 10/26/19 22:59 Albumin 3.7 g/dL (3.4-4.8) 10/26/19 22:59 Lipase 1232 U/L (8-78) H 10/26/19 22:59 - EKG Interpretation EKG: Afib, rate of 76bpm FMR H&P: A/P - Problem List (1) Acute pancreatitis Status: Acute Code(s): K85.90 - ACUTE PANCREATITIS WITHOUT NECROSIS OR INFECTION, UNSP (2) Bipolar disorder Status: Chronic Code(s): F31.9 - BIPOLAR DISORDER, UNSPECIFIED Qualifiers: Active/Remission status: in remission of unspecified degree Qualified Code( s): F31.70 - Bipolar disorder, currently in remission, most recent episode unspecified (3) Atrial fibrillation Status: Acute Code(s): I48.91 - UNSPECIFIED ATRIAL FIBRILLATION Qualifiers: Atrial fibrillation type: chronic (4) Hypertension Status: Acute Code(s): I10 - ESSENTIAL (PRIMARY) HYPERTENSION - Plan Acute Pancreatitis Lipase 1232 Etiology possible Hypertriglyceridemia vs medication - LFTs WNL, No reported ETOH use - will order lipid panel in the am for possible etiology, pt currently on statin - will resume - will med rec for possible medication contribution - Clear Liquid Diet - LR @ 125ml/hr - Tylenol PO PRN and morphine IVP prn for pain control - advance diet as tolerated - vitals q4hr - repeat CBC/CMP in the am Hx Afib Neg Trop, EKG revealed rate controlled Afib - resume home amiodarone and eliquis - continuous cardiac monitoring Hx HTN Currently stable in the 110s/120s systolic - will med rec for home bp medications Hx Bipolar Disorder - resume home quetiapine and buspirone Dispo: tele obs LOS <48 hours DVT PPx: Eliquis PCP: TAMP Code status: DNR/DNI I have discussed this case with Dr. Mckinley. FMR H&P: Upper Level - Plan Date/Time: 10/27/19 0405 I, Dara Shanks, have evaluated this patient and agree with findings/plan as outlined by international student advisor resident. Pertinent changes/additions are listed here. 89YOF with a PMH notable for afib on OAC, HTN, & bipolar disorder who presented to the ER for sudden onset upper abdominal and back pain with associated nausea that began earlier on the evening of presentation. Per the patient she ate as sandwich for dinner and then "felt funny" so she laid down to get some rest and has sudden onset severe upper abdominal and back pain with associated nausea & SOB. She reports she immediately called 911 for fear she was having an VT. On arrival to the ED she was noted to be in pain so basic bloodwork including a troponin, CBC, CMP & lipase level which were notable for an elevated lipase of 1232 & a WBC of 11.6. The patient was given nitropaste which reportedly relieved her pain but her initial troponin & EKG were WNLs. On exam her vitals were WNLs and her abdomen was soft & non-TTP. She was therefore admitted to the medical service for continued IVFs, pain control & close monitoring overnight for acute pancreatitis. Will add a lipid panel to AM labs & review home meds to assess for possible etiologies as LFTs not concerning for gallstone pancreatitis & no reported EtOH use. Will continue IVFs & IV morphine & PO tylenol for pain control & advance diet as tolerated. For chronic conditions, will resume all home meds pending none could have precipitated her pancreatitis. Addendum - Attending - Attending Attestation Date/Time: 10/28/19 0029 I personally evaluated the patient and discussed the management with Dr. Quiroz and Dr. Shanks I agree with the History, Examination, Assessment and Plan documented above with any addition or exceptions noted below. 89 yo female presenting to ER for evaluation of abdominal/chest/back pain with nausea and SOB. Noted to have lipase of 1232 and dx with acute pancreatitis. Previous cholecystectomy. Tbili WNL. Low concern for gallstone pancreatitis. FLP ordered for AM. Will review home meds. Denies any new medications or supplements. Denies drug use or other exposures. Admit to tele. NPO overnight. Advanced diet as tolerated. Trend labs. Adjust home meds as needed. Temitope
[2019-10-27] MEDS: Lactated Ringer's 1,000 ML IV SCH ×7 (04:45→20:38)
[2019-10-27] MEDS ORDERED: Docusate Sodium 100 MG/10 ML UDCUP PO PRN (05:15)
[2019-10-27] MEDS ORDERED: Alendronate Sodium 70 mg Tablet PO SCH (05:15)
[2019-10-27 05:53] VITALS: BMI 28.8
[2019-10-27 06:01] LABS: #Eosinphils 0.8 thou/uL (0.0-0.7); #Lymphocytes 1.3 thou/uL (1.20-3.40); #Monocytes 0.8 thou/uL (0.11-0.59); #Neutrophils 7.5 thou/uL (1.40-6.50); %Eosinophils 7.5 % (0.0-10.0); %Neutrophils 72.4 % (42.0-75.0); Hemoglobin 13.3 g/dL (12.0-16.0); Mean Corpuscular HGB CONC 32.9 g/dL (32.0-36.0); Mean Corpuscular Hemoglobin 32.7 pg (27.0-31.0); Mean Corpuscular Volume 99.4 fL (78.0-98.0); Platelet Count 210 thou/uL (130-400); RBC Distribution Width 12.1 % (11.5-14.5); Red Blood Cell (RBC) Count 4.06 mill/uL (4.20-5.40); White Blood Cell (WBC) Count 10.4 thou/uL (4.8-10.8)
[2019-10-27 06:19] LABS: ALT (SGPT) 27 U/L (8-55); AST (SGOT) 37 U/L (5-34); Albumin 3.8 g/dL (3.4-4.8); Alkaline Phosphatase 65 U/L (40-110); Anion Gap 14 mmol/L (10-20); BUN (Urea Nitrogen) 13 mg/dL (9.8-20.1); Bilirubin, Total 0.7 mg/dL (0.2-1.2); Calc. Creatinine Clearance 64 mL/min (70-130); Calcium 9.6 mg/dL (7.8-10.44); Carbon Dioxide 24 mmol/L (23-31); Cardiac Risk 2.4 (Less than 4.5); Chloride 106 mmol/L (98-107); Cholesterol 174 mg/dl (< 200 Desired); Estimated GFR-MDRD 71; Globulin 2.5 g/dL (2.4-3.5); Glucose 119 mg/dL (83-110); HDL Cholesterol 72 mg/dL (>60 Neg Risk); LDL Cholesterol, Calculated 85 mg/dL; Potassium 4.1 mmol/L (3.5-5.1); Protein, Total 6.3 g/dL (6.0-8.3); Sodium 140 mmol/L (136-145); Triglycerides 85 mg/dL (Less than 150)
--- NOTE | 2019-10-27 06:57 | PDOC.FM ---
- Subjective Subjective: Patient says she is feeling well. She denies chest pain, SOB, nausea, vomiting, abdominal pain or change in BMs. She underwent a cholecystectomy in the 1960s. No reported ETOH use. No hx of DM. - Objective MAR Reviewed: Yes Vital Signs & Weight: Vital Signs (12 hours) Temp Pulse Resp BP Pulse Ox 10/27/19 03:33 99.1 F 81 16 115/68 94 L Weight Weight 80.876 kg I&O: 10/25/19 10/26/19 10/27/19 06:59 06:59 06:59 Intake Total 280 Output Total 225 Balance 55 Result Diagrams: 10/27/19 05:39 10/27/19 05:39 Phys Exam - Physical Examination Constitutional: NAD HEENT: moist MMs, sclera anicteric Neck: supple, full ROM Respiratory: no wheezing, clear to auscultation bilateral Cardiovascular: RRR, no significant murmur Gastrointestinal: soft, non-tender, no distention, positive bowel sounds Musculoskeletal: no edema, pulses present Neurological: non-focal, moves all 4 limbs Lymphatic: no nodes Psychiatric: normal affect, A&O x 3 Skin: no rash, normal turgor Dx/Plan - Plan Plan: 1. Acute Pancreatitis Etiology is possibly medication use as amiodarone and alendronate are potential causes. Lipase 1232. AST elevated at 37. ALT WNL. No reported ETOH use. Triglycerides 85. No history of DM. Patient has not required pain medication overnight. -F/u gtt -F/u repeat lipase -Advance diet as tolerated -LR @ 125ml/hr -Tylenol PO PRN and morphine IVP prn for pain control 2. Hx Afib Neg Trop. EKG revealed rate controlled Afib. -Continue home meds -Continuous cardiac monitoring 3. Hx HTN Stable -Continue home medications 4. Hx Bipolar Disorder -Continue home medications 5. Hx Breast Cancer -Reports a history of breast cancer 5 years ago. DVT PPx: Fabienne PCP: TANA Code status: DNR/DNI Dispo: Home pending advanced diet with adequate pain control
[2019-10-27] MEDS: Amiodarone 200 MG TAB PO SCH (08:10)
[2019-10-27] MEDS: busPIRone HCl 5 MG TAB PO SCH ×2 (08:12→20:43)
[2019-10-27] MEDS: Apixaban 2.5 MG TAB PO SCH ×2 (08:12→20:37)
[2019-10-27 09:36] LABS: Gamma GT (GGT) 36 U/L (9-36)
[2019-10-27 09:37] LABS: Lipase 320 U/L (8-78)
[2019-10-27 11:05] LABS: Bilirubin Negative (Negative); Blood, Urine Negative (Negative); Clarity Turbid (Clear); Glucose, Urine (Dipstick) Normal (Negative); Ketone, Urine Negative (Negative); Leukocyte 500 Leu/uL (Negative); Nitrite Negative (Negative); Protein, Urine (Dipstick) Negative (Neg-Trace); RBC/HPF 0-3 HPF (0-3); Specific Gravity, Urine 1.015 (1.002-1.036); Squamous Epithelial 0-3 HPF (0-3); Urobilinogen Normal mg/dL (Less than 2)
[2019-10-27 11:14] LABS: Bacteria/HPF 2+ HPF (None Seen)
[2019-10-27 12:28] LABS: SARS-CoV-2 MS2 Positive; SARS-CoV-2 N Gene Negative; SARS-CoV-2 S Gene Negative; SARS-CoV-2 by NAA Not Detected (NotDetected); SARS-CoV-2 orf1ab Negative
--- NOTE | 2019-10-27 12:38 | PRG ---
DATE OF SERVICE: 10/27/2019 Ms. King is a very pleasant 89-year-old white female patient. She was admitted last evening with acute pancreatitis, etiology not clear. She had had a cholecystectomy in the 1960s. She does not drink alcohol. In the event, she had just eaten dinner and had sudden onset and development of epigastric abdominal pain. She called 911 and was transported to the emergency room. There she was noted to have an elevated lipase of 1232 and white count of 11,600. She has been admitted for treatment and evaluation. This morning, her pain is completely resolved and she is in no distress whatever. Her labs now revealed a white count of 10,400. Her hemoglobin is 13.3 with hematocrit of 40.3. Chemistries; sodium is 140, potassium is 4.1, chloride is 106, bicarb is 24, BUN is 13, creatinine is 0.77, and glucose is 119. She does have a very slight elevation of her AST to 47 and ALT of 24. Her lipase initially was 1232, it is now 320. As stated, she looks and feels much better. There has been no imaging done thus far. Ms. King has evidently had an episode of acute pancreatitis, which has clinically at least resolved. We are going to proceed with a CT of her abdomen and consider other further workup based on our initial findings. In the event clinically, she is now much improved and we will begin a clear liquid, advancing to soft diet. She will likely be able to be discharged in the morning. Job ID: [id number]
--- NOTE | 2019-10-27 14:55 | CT ---
CT ABDOMEN AND PELVIS WITH IV AND ORAL CONTRAST: 10/27/19 HISTORY: Evaluate for pancreatitis. COMPARISON: 07/20/18. FINDINGS: Scarring in the periphery of the right middle lobe and the lower lobes is again seen. Cysts in the li eliel and kidneys, changes of cholecystectomy and dilated common bile duct at 12 mm are stable. The spl een, pancreas, adrenal glands are normal. No peripancreatic fluid or inflammatory changes are seen. N o pancreatic calcifications are noted. No free air, free fluid or lymphadenopathy seen in the abdomen or pelvis. There is a Dunaway catheter i n a decompressed urinary bladder. A retroaortic left renal vein is present. There are vascular calcif ications without evidence of aneurysmal dilatation of the abdominal aorta. There are degenerative gill nges in the spine. The small bowel loops are not abnormally dilated. There is colonic diverticulosis without evidence of diverticulitis. The patient is post hysterectomy. A small hiatal hernia is present. IMPRESSION: Stable exam. No acute process. POS: OFF
[2019-10-27] MEDS ORDERED: Iopamidol 370 76% 100 ML VIAL ONE (15:41)
[2019-10-27] MEDS ORDERED: Iopamidol 370 76% 50 ML VIAL FS ONE (15:41)
[2019-10-27] MEDS ORDERED: cefTRIAXone\\ROCEPHIN 1 GM in Sodium Chloride 0.9% 100 ML IVPB SCH (17:00)
[2019-10-27] MEDS ORDERED: Rosuvastatin 10 MG TAB PO SCH (21:00)
--- NOTE | 2019-10-28 06:06 | PDOC.FM ---
- Subjective Subjective: Patient says she is ready to go home. She denies nausea, vomiting, chest pain, SOB, and abdominal pain. She has tolerated her advancing diet well. - Objective MAR Reviewed: Yes Vital Signs & Weight: Vital Signs (12 hours) Temp Pulse Resp BP Pulse Ox 10/28/19 04:00 98.7 F 72 18 138/74 97 10/28/19 00:00 97.5 F L 84 16 92/50 L 93 L 10/27/19 20:00 98.2 F 83 16 154/83 H 96 Weight Admit Weight 80.876 kg Weight 80.876 kg I&O: 10/26/19 10/27/19 10/28/19 06:59 06:59 06:59 Intake Total 280 3740 Output Total 225 2750 Balance 55 990 Result Diagrams: 10/27/19 05:39 10/27/19 05:39 Phys Exam - Physical Examination Constitutional: NAD HEENT: moist MMs, sclera anicteric Neck: supple, full ROM Respiratory: no wheezing, clear to auscultation bilateral Cardiovascular: RRR, no significant murmur Gastrointestinal: soft, non-tender, no distention, positive bowel sounds Musculoskeletal: no edema, pulses present Neurological: non-focal, moves all 4 limbs Lymphatic: no nodes Psychiatric: normal affect, A&O x 3 Skin: no rash, normal turgor Dx/Plan - Plan Plan: 1. Acute Pancreatitis Etiology is possibly medication use as amiodarone and alendronate are potential causes. Lipase 1232 initially, now 320. AST elevated at 37. ALT WNL. No reported ETOH use. GGT 36. Triglycerides 85. No history of DM. CT A/P showed no acute process. -Regular low fat diet -Stop LR as patient has adequate PO intake -Tylenol PO PRN and morphine IVP prn for pain control 2. UTI Patient has chronic indwelling love, most recently changed 10/26. She sees Dr. Martinez, urology. UA + leuk castillo, WBC and bacteria. -Rocephin 1g IV x 1. Will switch to Cipro 250mg Q12 PO x 2 days. -F/u urine culture 3. Hx Afib Neg Trop. EKG revealed rate controlled Afib. -Continue home meds -Continuous cardiac monitoring 4. HTN Stable -Continue home medications 5. Hx Bipolar Disorder -Continue home medications 6. Hx Breast Cancer -Reports a history of breast cancer 5 years ago. 7. CKD, stage 3 -Renally dose medications 8. HFpEF Echo completed on 09/09/18 showed EF 60-65% -No symptoms of fluid overload DVT PPx: Fabienne PCP: TANA Code status: DNR/DNI Dispo: Home pending tolerance of regular diet today
[2019-10-28] MEDS: Lactated Ringer's 1,000 ML IV SCH (06:12)
[2019-10-28] MEDS: busPIRone HCl 5 MG TAB PO SCH (08:24)
[2019-10-28] MEDS: Amiodarone 200 MG TAB PO SCH (08:24)
[2019-10-28] MEDS: Apixaban 2.5 MG TAB PO SCH (08:26)
[2019-10-28] MEDS ORDERED: Cipro 250 MG TAB PO SCH ×3 (09:10→20:00)
[2019-10-28 12:13] VITALS: TEMP 98.1
[2019-10-28 12:30] VITALS: BP 161/78
--- NOTE | 2019-10-28 12:34 | PRG ---
DATE OF SERVICE: 10/28/2019 Ms. King is resting comfortably in bed. She is having absolutely no abdominal pain. She is tolerating her diet without difficulty. Her CT scan was normal except it did show a dilated common duct of 12 mm. This is beyond normal even for an elderly person. However, as stated above, she is completely currently asymptomatic. She has only had one episode of abdominal pain as such in the last many years. I therefore feel it would be reasonable to release her home with the understanding that should she have recurrent pain, we would proceed with an MRCP. However, given that her bilirubin is normal, alkaline phosphatase is normal, amylase is dropping and she feels fine, I do not believe this is indicated at this time. She will therefore be discharged for followup. Job ID: [id number]
--- NOTE | 2019-10-29 11:11 | DIS ---
DATE OF ADMISSION: 10/27/2019 DATE OF DISCHARGE: 10/28/2019 PRIMARY CARE PHYSICIAN: Blake Roman MD RESIDENT: Taty Pandya MD ADMITTING ATTENDING: Alisa Mckinley MD DISCHARGE ATTENDING: Calvin Looney MD CONSULTS: None. PROCEDURES: None. PRIMARY DIAGNOSIS: Acute pancreatitis, urinary tract infection SECONDARY DIAGNOSES: History of atrial fibrillation, hypertension, bipolar disorder, history of breast cancer, chronic kidney disease, heart failure with preserved ejection fraction, and chronic indwelling Dunaway. DISCHARGE MEDICATIONS: 1. Alendronate 70 mg p.o. every 7 days 2. Buspirone 15 mg p.o. b.i.d. 3. Seroquel 50 mg p.o. at bedtime. 4. Rosuvastatin 10 mg p.o. at bedtime. 5. Amiodarone 200 mg p.o. daily. 6. Eliquis 2.5 mg p.o. b.i.d. 7. Keflex 500 mg p.o. q.12 for 3 doses DISCONTINUED MEDICATIONS: None. HISTORY OF PRESENT ILLNESS: The patient is an 89-year-old female who presented to the ED with complaints of upper abdominal pain radiating to her back. The pain resolved upon admission and did not reoccur prior to discharge. The patient denied nausea throughout her admission. Lipase was initially 1232 in the ED. UTI noted. The patient was started on Lactated Ringer's for fluid resuscitation and Rocephin 1g IV for UTI. Lipase improved to 320. CT abdomen and pelvis was completed and showed no acute process. Causes of pancreatitis were explored and did not reveal risk factors aside from medication use. The patient tolerated transition of diet to regular low fat well. The patient sees Dr. Padilla, urology, for chronic indwelling Dunaway. The Dunaway was changed on 10/26. Due to anticipated discharge home, patient was transitioned to Keflex 500 mg q.12 hour. The patient will be discharged home with three remaining tablets to complete the treatment. She will followup with her primary care physician, Dr. Blake Roman, within 1 week. DISPOSITION: Stable. DISCHARGE INSTRUCTIONS: Location, home. Diet, heart healthy. Activity, as tolerated. Follow up with Dr. Blake Roman (PCP) within 1 week. Job ID: [id number] [facility]
== END 2019-10-28 13:53 | disposition home or self-care (01) ==
LOC: ERS 21:39 → ONC 10-27 00:36
PROVIDERS: ADMIT Student in an Organized Health Care Education/Training Program; ATTEND Student in an Organized Health Care Education/Training Program
DX: K85.90 Acute pancreatitis without necrosis or infection, unspecified (principal); N39.0 Urinary tract infection, site not specified; I13.0 Hypertensive heart and chronic kidney disease with heart failure and stage 1 through stage 4 chronic kidney disease, or unspecified chronic kidney disease; N18.9 Chronic kidney disease, unspecified; I50.30 Unspecified diastolic (congestive) heart failure; K83.8 Other specified diseases of biliary tract; F31.9 Bipolar disorder, unspecified; Z79.01 Long term (current) use of anticoagulants; Z79.899 Other long term (current) drug therapy; Z66 Do not resuscitate
CPT/HCPCS: 71045; 74177; 80053 ×2; 80061; 81001; 82977; 83615; 83690 ×2; 84484; 85025 ×2; 87086; 93005; U0003; 36415; 51702; 87635; 96361; 96365; G0378; J0696; J3490; Q9967

== ENCOUNTER 2020-03-07 12:32 | Outpatient (CLI) | payer MEDICARE, OTHER ==
--- NOTE | 2020-03-07 13:03 | ULT ---
. US Renal Bilateral STANDARD History: Urinary retention. 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 Renal calculi. FINDINGS: The right kidney measures 8.3 cm in length and the left kidney measures 8.7 cm in length. N o hydronephrosis seen on either side. There is a 1.7 x 1.4 cm cyst in the superior pole of the right kidney. No shadowing calculi are noted. A Dunaway catheter is present in the urinary bladder. IMPRESSION: Right renal cyst.
--- NOTE | 2020-03-07 14:27 | RAD ---
KUB: Date: 03/07/2020 HISTORY: Renal calculi. COMPARISON: CT examination of 10/27/2019. FINDINGS: Bowel gas pattern is nonobstructive. Stool and air obscure both renal outlines. It is difficult to de finitely appreciate any renal calculi. Calcification seen in the left side of the pelvis appears to r epresent a phlebolith. IMPRESSION: No definitive renal calculi. POS: ABBY
== END 2020-03-07 12:33 | disposition home or self-care (01) ==
LOC: BICULT 12:32
PROVIDERS: ATTEND Urology
DX: N20.0 Calculus of kidney (principal); N32.3 Diverticulum of bladder; R33.9 Retention of urine, unspecified; N28.1 Cyst of kidney, acquired
CPT/HCPCS: 74018; 76770

== ENCOUNTER 2020-10-05 17:10 | Inpatient (IN) | payer MEDICARE, OTHER ==
[2020-10-05 17:50] LABS: #Eosinphils 0.4 thou/uL (0.0-0.7); #Lymphocytes 1.1 thou/uL (1.20-3.40); #Neutrophils 9.9 thou/uL (1.40-6.50); %Eosinophils 3.1 % (0.0-10.0); %Lymphocytes 8.8 % (21.0-51.0); %Neutrophils 80.1 % (42.0-75.0); Hemoglobin 13.1 g/dL (12.0-16.0); Mean Corpuscular HGB CONC 35.1 g/dL (32.0-36.0); Mean Corpuscular Volume 99.8 fL (78.0-98.0); Mean Platelet Volume 9.5 fL (7.4-10.4); Platelet Count 182 thou/uL (130-400); RBC Distribution Width 11.9 % (11.5-14.5); Red Blood Cell (RBC) Count 3.73 mill/uL (4.20-5.40); White Blood Cell (WBC) Count 12.4 thou/uL (4.8-10.8)
[2020-10-05 18:03] LABS: ALT (SGPT) 8 U/L (8-55); AST (SGOT) 15 U/L (5-34); Alkaline Phosphatase 76 U/L (40-110); Anion Gap 16 mmol/L (10-20); BUN (Urea Nitrogen) 12 mg/dL (9.8-20.1); Bilirubin, Total 1.3 mg/dL (0.2-1.2); Calc. Creatinine Clearance 0 mL/min (70-130); Calcium 9.6 mg/dL (7.8-10.44); Carbon Dioxide 20 mmol/L (23-31); Chloride 104 mmol/L (98-107); Globulin 2.6 g/dL (2.4-3.5); Glucose 142 mg/dL (83-110); Potassium 4.1 mmol/L (3.5-5.1); Protein, Total 6.6 g/dL (5.8-8.1); Sodium 136 mmol/L (136-145)
[2020-10-05 18:25] LABS: CKMB 1.3 ng/mL (0-6.6)
[2020-10-05] MEDS ORDERED: Acetaminophen 500 MG TAB ONE (19:00)
[2020-10-05] MEDS ORDERED: Ondansetron ODT 4 MG TAB PO PRN (22:42)
[2020-10-05] MEDS ORDERED: Nitroglycerin 0.4 MG TAB (25 Tab Bottle) SL PRN (22:42)
[2020-10-05] MEDS ORDERED: Ondansetron PF 4 MG/2 ML Vial IVP PRN (22:42)
[2020-10-05] MEDS ORDERED: Acetaminophen 325 MG TAB PO PRN (22:42)
[2020-10-05] MEDS ORDERED: Electrolyte Replacement Protocol FS PRN (23:00)
[2020-10-05] MEDS ORDERED: Enoxaparin Sodium 80 MG/0.8 ML SYRINGE SC SCH (23:00)
[2020-10-05] MEDS ORDERED: Furosemide 40 MG/4 ML VIAL SLOW IVP SCH (23:00)
[2020-10-05] MEDS ORDERED: Electrolyte Replacement Protocol 1 EACH FS SCH (23:00)
[2020-10-05 23:04] VITALS: BMI 27.5
[2020-10-05 23:57] LABS: Troponin I 0.123 ng/mL (< 0.028)
[2020-10-06] MEDS ORDERED: Rosuvastatin 10 MG TAB PO SCH (00:15)
[2020-10-06] MEDS ORDERED: busPIRone HCl 5 MG TAB PO SCH (00:15)
[2020-10-06 01:39] LABS: Bacteria/HPF 2+ HPF (None Seen); Bilirubin Negative (Negative); Blood, Urine Negative (Negative); Clarity Clear (Clear); Glucose, Urine (Dipstick) Normal (Negative); Ketone, Urine Negative (Negative); Leukocyte 25 Leu/uL (Negative); Nitrite Negative (Negative); Protein, Urine (Dipstick) Negative (Neg-Trace); RBC/HPF 0-3 HPF (0-3); Specific Gravity, Urine 1.005 (1.002-1.036); Squamous Epithelial None Seen HPF (0-3); Urobilinogen Normal mg/dL (Less than 2); pH, Urine 7.5 (5.0-9.0)
[2020-10-06 01:40] LABS: Urine Culture Reflex Yes Yes
[2020-10-06] MEDS ORDERED: Aspirin Chewable 81 MG TAB PO SCH (02:45)
[2020-10-06 05:43] LABS: #Eosinphils 0.4 thou/uL (0.0-0.7); #Monocytes 0.9 thou/uL (0.11-0.59); #Neutrophils 6.4 thou/uL (1.40-6.50); %Basophils 0.1 % (0.0-1.0); %Eosinophils 4.3 % (0.0-10.0); %Lymphocytes 11.4 % (21.0-51.0); %Monocytes 10.1 % (0.0-10.0); %Neutrophils 74.1 % (42.0-75.0); Hemoglobin 13.7 g/dL (12.0-16.0); Mean Corpuscular HGB CONC 33.1 g/dL (32.0-36.0); Mean Corpuscular Hemoglobin 33.5 pg (27.0-31.0); Mean Platelet Volume 10.4 fL (7.4-10.4); Platelet Count 184 thou/uL (130-400); White Blood Cell (WBC) Count 8.7 thou/uL (4.8-10.8)
[2020-10-06 05:49] LABS: Anion Gap 18 mmol/L (10-20); BUN (Urea Nitrogen) 10 mg/dL (9.8-20.1); Calc. Creatinine Clearance 60 mL/min (70-130); Calcium 9.8 mg/dL (7.8-10.44); Carbon Dioxide 25 mmol/L (23-31); Chloride 102 mmol/L (98-107); Glucose 125 mg/dL (83-110); Potassium 3.7 mmol/L (3.5-5.1); Sodium 141 mmol/L (136-145)
[2020-10-06] MEDS ORDERED: Enoxaparin Sodium 80 MG/0.8 ML SYRINGE SC SCH (09:00)
[2020-10-06] MEDS ORDERED: Furosemide 20 MG TAB PO SCH (09:30)
[2020-10-06] MEDS ORDERED: Amiodarone 200 MG TAB PO SCH (09:30)
[2020-10-06] MEDS: Digoxin 0.125 MG TAB PO SCH (10:01)
[2020-10-06] MEDS: Aspirin Chewable 81 MG TAB PO SCH (10:01)
[2020-10-06] MEDS: busPIRone HCl 5 MG TAB PO SCH ×2 (10:02→20:42)
[2020-10-06 14:31] LABS: Troponin I 0.065 ng/mL (< 0.028)
[2020-10-06 15:50] LABS: Anion Gap 14 mmol/L (10-20); BUN (Urea Nitrogen) 11 mg/dL (9.8-20.1); Calc. Creatinine Clearance 56 mL/min (70-130); Calcium 9.7 mg/dL (7.8-10.44); Carbon Dioxide 31 mmol/L (23-31); Chloride 101 mmol/L (98-107); Glucose 133 mg/dL (83-110); Magnesium 1.7 mg/dL (1.6-2.6); Potassium 3.8 mmol/L (3.5-5.1); Sodium 142 mmol/L (136-145)
[2020-10-06] MEDS ORDERED: Magnesium Sulfate 4 GM in Sodium Chloride 0.9% 250 ML 250 ML IVPB SCH (16:00)
[2020-10-06] MEDS: Rosuvastatin 10 MG TAB PO SCH (20:42)
[2020-10-07 08:08] LABS: Anion Gap 13 mmol/L (10-20); BUN (Urea Nitrogen) 14 mg/dL (9.8-20.1); Calc. Creatinine Clearance 58 mL/min (70-130); Calcium 9.1 mg/dL (7.8-10.44); Carbon Dioxide 26 mmol/L (23-31); Chloride 101 mmol/L (98-107); Glucose 108 mg/dL (83-110); Potassium 4.1 mmol/L (3.5-5.1); Sodium 136 mmol/L (136-145)
[2020-10-07] MEDS: Aspirin Chewable 81 MG TAB PO SCH (08:09)
[2020-10-07] MEDS: Furosemide 20 MG TAB PO SCH (08:10)
[2020-10-07] MEDS: Digoxin 0.125 MG TAB PO SCH (08:10)
[2020-10-07] MEDS: busPIRone HCl 5 MG TAB PO SCH ×2 (08:10→22:08)
[2020-10-07] MEDS: Amiodarone 200 MG TAB PO SCH (08:11)
[2020-10-07] MEDS: cefTRIAXone\\ROCEPHIN 1 GM in Sodium Chloride 0.9% 100 ML IVPB SCH (20:43)
[2020-10-07] MEDS: Rosuvastatin 10 MG TAB PO SCH (22:07)
[2020-10-07] MEDS: Midodrine HCl 5 MG TAB PO SCH (22:08)
[2020-10-08 05:16] LABS: #Eosinphils 0.4 thou/uL (0.0-0.7); #Lymphocytes 0.9 thou/uL (1.20-3.40); #Neutrophils 6.3 thou/uL (1.40-6.50); %Basophils 0.2 % (0.0-1.0); %Eosinophils 4.6 % (0.0-10.0); %Lymphocytes 10.1 % (21.0-51.0); %Monocytes 11.5 % (0.0-10.0); %Neutrophils 73.6 % (42.0-75.0); Hemoglobin 13.3 g/dL (12.0-16.0); Mean Corpuscular HGB CONC 34.6 g/dL (32.0-36.0); Mean Corpuscular Hemoglobin 34.4 pg (27.0-31.0); Mean Corpuscular Volume 99.4 fL (78.0-98.0); Mean Platelet Volume 9.5 fL (7.4-10.4); Platelet Count 170 thou/uL (130-400); RBC Distribution Width 12.1 % (11.5-14.5); Red Blood Cell (RBC) Count 3.87 mill/uL (4.20-5.40); White Blood Cell (WBC) Count 8.5 thou/uL (4.8-10.8)
[2020-10-08 05:36] LABS: ALT (SGPT) 8 U/L (8-55); AST (SGOT) 15 U/L (5-34); Albumin 3.7 g/dL (3.4-4.8); Alkaline Phosphatase 75 U/L (40-110); Anion Gap 12 mmol/L (10-20); BUN (Urea Nitrogen) 13 mg/dL (9.8-20.1); Bilirubin, Total 0.8 mg/dL (0.2-1.2); Calc. Creatinine Clearance 56 mL/min (70-130); Calcium 9.1 mg/dL (7.8-10.44); Carbon Dioxide 29 mmol/L (23-31); Chloride 102 mmol/L (98-107); Globulin 2.7 g/dL (2.4-3.5); Glucose 155 mg/dL (83-110); Potassium 3.8 mmol/L (3.5-5.1); Protein, Total 6.4 g/dL (5.8-8.1); Sodium 139 mmol/L (136-145)
[2020-10-08] MEDS: Furosemide 20 MG TAB PO SCH (09:25)
[2020-10-08] MEDS: Midodrine HCl 5 MG TAB PO SCH ×2 (09:25→20:20)
[2020-10-08] MEDS: Amiodarone 200 MG TAB PO SCH (09:25)
[2020-10-08] MEDS: Aspirin Chewable 81 MG TAB PO SCH (09:25)
[2020-10-08] MEDS: busPIRone HCl 5 MG TAB PO SCH ×2 (09:27→20:20)
[2020-10-08] MEDS ORDERED: Benzonatate 100 MG CAP PO PRN (20:00)
[2020-10-08] MEDS: Rosuvastatin 10 MG TAB PO SCH (20:19)
[2020-10-08] MEDS: cefTRIAXone\\ROCEPHIN 1 GM in Sodium Chloride 0.9% 100 ML IVPB SCH (20:20)
[2020-10-08] MEDS ORDERED: Melatonin 3 MG TAB PO PRN (20:26)
[2020-10-09] MEDS: Aspirin Chewable 81 MG TAB PO SCH (08:40)
[2020-10-09] MEDS: busPIRone HCl 5 MG TAB PO SCH ×2 (08:41→20:51)
[2020-10-09] MEDS: Midodrine HCl 5 MG TAB PO SCH ×2 (08:41→20:56)
[2020-10-09] MEDS: Amiodarone 200 MG TAB PO SCH (08:41)
[2020-10-09] MEDS: Furosemide 20 MG TAB PO SCH (08:41)
[2020-10-09] MEDS: cefTRIAXone\\ROCEPHIN 1 GM in Sodium Chloride 0.9% 100 ML IVPB SCH (18:37)
[2020-10-09] MEDS: Rosuvastatin 10 MG TAB PO SCH (20:51)
[2020-10-09] MEDS ORDERED: Melatonin 3 MG TAB PO SCH (22:30)
[2020-10-10] MEDS: Furosemide 20 MG TAB PO SCH (09:05)
[2020-10-10] MEDS: Aspirin Chewable 81 MG TAB PO SCH (09:09)
[2020-10-10] MEDS: Midodrine HCl 5 MG TAB PO SCH (09:09)
[2020-10-10] MEDS: busPIRone HCl 5 MG TAB PO SCH (09:10)
[2020-10-10] MEDS: Amiodarone 200 MG TAB PO SCH (09:10)
[2020-10-10 12:23] VITALS: TEMP 97.6
[2020-10-10 16:43] VITALS: BP 124/84
[2020-10-10] MEDS ORDERED: Melatonin 3 MG TAB PO SCH (21:00)
[2020-10-13] MEDS ORDERED: Ergocalciferol 1.25 MG(50,000 UNITS) CAP PO SCH (09:00)
== END 2020-10-10 18:25 | disposition home health service (06) | DRG 280 ==
LOC: ERS 17:10 → 2SW 19:30 → OBSVTOIN 10-06 13:50
PROVIDERS: ADMIT Student in an Organized Health Care Education/Training Program; ATTEND Internal Medicine
DX: I13.0 Hypertensive heart and chronic kidney disease with heart failure and stage 1 through stage 4 chronic kidney disease, or unspecified chronic kidney disease (principal); I50.33 Acute on chronic diastolic (congestive) heart failure; I21.A1 Myocardial infarction type 2; N39.0 Urinary tract infection, site not specified; I48.0 Paroxysmal atrial fibrillation; D72.829 Elevated white blood cell count, unspecified; I25.10 Atherosclerotic heart disease of native coronary artery without angina pectoris; F32.9 Major depressive disorder, single episode, unspecified; N18.2 Chronic kidney disease, stage 2 (mild); E83.42 Hypomagnesemia; E87.6 Hypokalemia; R33.9 Retention of urine, unspecified; B96.20 Unspecified Escherichia coli [E. coli] as the cause of diseases classified elsewhere; I95.1 Orthostatic hypotension; Z79.01 Long term (current) use of anticoagulants; Z79.899 Other long term (current) drug therapy; Z90.49 Acquired absence of other specified parts of digestive tract; Z90.710 Acquired absence of both cervix and uterus; Z85.3 Personal history of malignant neoplasm of breast
CPT/HCPCS: 36415; 36416; 71045; 80048; 80053; 81001; 82533; 82553; 82607; 82746; 83735; 83880; 84484; 85025; 87077; 87086; 87186; 93005; 93010; 93306; 93798; 94760; 96372; 96375; G0378; J0696; J1650; J1940; J3475; J3490; J7050

== ENCOUNTER 2020-12-09 10:26 | Outpatient (CLI) | payer MEDICARE, OTHER ==
[2020-12-09 12:24] LABS: Mean Corpuscular HGB CONC 32.8 g/dL (32.0-36.0); Mean Corpuscular Hemoglobin 32.9 pg (27.0-33.0); Mean Corpuscular Volume 100.3 fl (81.6-98.3); Mean Platelet Volume 12.7 fl (7.4-10.4); Platelet Count 249 10x3/uL (150-450); RBC Distribution Width 12.9 % (11.5-14.5); Red Blood Cell (RBC) Count 3.95 10x6/uL (3.90-5.03); White Blood Cell (WBC) Count 8.4 10x3/uL (3.5-10.5)
[2020-12-09 12:34] LABS: Anion Gap 17 mmol/L (10-20); BUN (Urea Nitrogen) 10 mg/dL (9.8-20.1); Calc. Creatinine Clearance 0 mL/min (70-130); Calcium 10.4 mg/dL (7.8-10.44); Carbon Dioxide 24 mmol/L (23-31); Chloride 104 mmol/L (98-107); Glucose 97 mg/dL (83-110); Potassium 3.9 mmol/L (3.5-5.1); Sodium 141 mmol/L (136-145)
[2020-12-09 12:40] LABS: INR-International Normal Ratio 1.1; PTT 26.7 sec (22.0-33.0); Prothrombin Time 11.8 sec (9.5-12.1)
[2020-12-10 19:13] LABS: SARS-CoV-2 PCR by NAA Not Detected (NotDetected)
== END 2020-12-09 10:27 | disposition home or self-care (01) ==
LOC: LABBT 10:26
PROVIDERS: ATTEND Internal Medicine Cardiovascular Disease
DX: Z01.818 Encounter for other preprocedural examination (principal); I48.91 Unspecified atrial fibrillation; Z20.822 Contact with and (suspected) exposure to COVID-19
CPT/HCPCS: 80048; 85027; 85610; 85730; 93005; U0003; U0005; 93010

== ENCOUNTER 2020-12-14 08:14 | Day surgery (SDC) | payer MEDICARE, OTHER ==
[2020-12-13 10:45] VITALS: BMI 25.0
[2020-12-14] MEDS ORDERED: PROPOFOL 200 MG/20 ML VIAL ONE (11:04)
== END 2020-12-14 12:39 | disposition home or self-care (01) ==
LOC: CCL 08:14
PROVIDERS: ATTEND Internal Medicine Cardiovascular Disease
PROC: B24BZZ4 Ultrasonography of Heart with Aorta, Transesophageal (ICD-10-PCS; principal; 2020-12-14)
DX: I48.19 Other persistent atrial fibrillation (principal); I08.8 Other rheumatic multiple valve diseases; I70.0 Atherosclerosis of aorta; Z79.899 Other long term (current) drug therapy; Z79.01 Long term (current) use of anticoagulants; Z79.82 Long term (current) use of aspirin; Z95.818 Presence of other cardiac implants and grafts
CPT/HCPCS: 93312; J2704

== ENCOUNTER 2020-12-29 14:03 | Inpatient (IN) | payer MEDICARE, OTHER ==
[2020-12-29 14:57] LABS: #Eosinphils 0.4 thou/uL (0.0-0.7); #Lymphocytes 1.1 thou/uL (1.20-3.40); #Monocytes 0.9 thou/uL (0.11-0.59); #Neutrophils 5.5 thou/uL (1.40-6.50); %Basophils 0.3 % (0.0-1.0); %Eosinophils 5.3 % (0.0-10.0); %Lymphocytes 13.5 % (21.0-51.0); %Neutrophils 69.9 % (42.0-75.0); Mean Corpuscular HGB CONC 33.8 g/dL (32.0-36.0); Mean Corpuscular Hemoglobin 34.5 pg (27.0-31.0); Mean Platelet Volume 9.4 fL (7.4-10.4); Platelet Count 218 thou/uL (130-400); RBC Distribution Width 12.2 % (11.5-14.5); Red Blood Cell (RBC) Count 4.06 mill/uL (4.20-5.40); White Blood Cell (WBC) Count 7.9 thou/uL (4.8-10.8)
[2020-12-29 15:16] LABS: ALT (SGPT) 16 U/L (8-55); AST (SGOT) 23 U/L (5-34); Albumin 4.3 g/dL (3.4-4.8); Alkaline Phosphatase 78 U/L (40-110); Anion Gap 15 mmol/L (10-20); BUN (Urea Nitrogen) 14 mg/dL (9.8-20.1); Bilirubin, Total 1.1 mg/dL (0.2-1.2); Calc. Creatinine Clearance 0 mL/min (70-130); Calcium 10.1 mg/dL (7.8-10.44); Carbon Dioxide 29 mmol/L (23-31); Chloride 101 mmol/L (98-107); Globulin 2.7 g/dL (2.4-3.5); Glucose 116 mg/dL (83-110); Potassium 4.1 mmol/L (3.5-5.1); Sodium 141 mmol/L (136-145)
[2020-12-29] MEDS ORDERED: Meclizine HCl 25 MG TAB ONE (18:44)
[2020-12-29] MEDS ORDERED: Diazepam 5 MG TAB ONE (20:32)
[2020-12-29 21:25] LABS: Bacteria/HPF 4+ HPF (None Seen); Bilirubin Negative (Negative); Blood, Urine 1+ (Negative); Clarity Extra Turbid (Clear); Glucose, Urine (Dipstick) Normal (Negative); Ketone, Urine Negative (Negative); Leukocyte 500 Leu/uL (Negative); Nitrite 2+ (Negative); Protein, Urine (Dipstick) 30 mg/dL (Neg-Trace); RBC/HPF 21-50 HPF (0-3); Specific Gravity, Urine 1.012 (1.002-1.036); Urobilinogen Normal mg/dL (Less than 2); WBC/HPF Greater than 50 HPF (0-3)
[2020-12-29 21:32] LABS: Troponin I 1.427 ng/mL (< 0.028)
[2020-12-29] MEDS ORDERED: cefTRIAXone\\ROCEPHIN 1 GM VIAL ONE (21:56)
[2020-12-29] MEDS ORDERED: Aspirin Chewable 81 MG TAB ONE (22:16)
[2020-12-29] MEDS ORDERED: Enoxaparin Sodium 40 MG/0.4 ML SYRINGE SC SCH (23:15)
[2020-12-30 00:43] LABS: Troponin I 1.843 ng/mL (< 0.028)
[2020-12-30] MEDS ORDERED: Heparin 25,000 units/D5W 500 ML IVPB SCH (01:30)
[2020-12-30 01:34] VITALS: BMI 27.6
[2020-12-30] MEDS ORDERED: Heparin 25,000 units/D5W 500 ML ONE (02:00)
[2020-12-30] MEDS ORDERED: Heparin 10,000 UNITS/ 10 ML VIAL ONE (02:02)
[2020-12-30 02:23] LABS: Hemoglobin 13.7 g/dL (12.0-16.0); Platelet Count 210 thou/uL (130-400)
[2020-12-30] MEDS: Heparin 10,000 UNITS/ 10 ML VIAL SLOW IVP SCH ×2 (02:24→21:10)
[2020-12-30 03:37] LABS: Critical Call Chem Troponin I RESULT DECREASING; Troponin I 1.758 ng/mL (< 0.028)
[2020-12-30 05:58] LABS: SARS-CoV-2 NAA Rapid Test Not Detected (NotDetected)
[2020-12-30 07:15] LABS: Critical Call Chem Troponin I RESULT DECREASING; Troponin I 1.207 ng/mL (< 0.028)
[2020-12-30] MEDS: busPIRone HCl 5 MG TAB PO SCH ×2 (10:10→21:02)
[2020-12-30] MEDS: Furosemide 20 MG TAB PO SCH (10:10)
[2020-12-30] MEDS: Midodrine HCl 5 MG TAB PO SCH ×2 (10:11→20:58)
[2020-12-30] MEDS ORDERED: Aspirin Chewable 81 MG TAB ONE (10:13)
[2020-12-30] MEDS: Aspirin Chewable 81 MG TAB PO SCH (10:13)
[2020-12-30] MEDS ORDERED: Digoxin 0.125 MG TAB ONE (10:15)
[2020-12-30] MEDS: Digoxin 0.125 MG TAB PO SCH (10:16)
[2020-12-30] MEDS ORDERED: Clopidogrel Bisulfate 75 MG TAB ONE ×2 (10:26→10:34)
[2020-12-30] MEDS: Clopidogrel Bisulfate 75 MG TAB PO SCH (10:37)
[2020-12-30 15:26] LABS: PTT 146.6 sec (22.9-36.1)
[2020-12-30 17:46] LABS: Prothrombin Time 13.5 sec (12.0-14.7)
[2020-12-30 17:47] LABS: PTT 42.2 sec (22.9-36.1)
[2020-12-30] MEDS: Rosuvastatin 10 MG TAB PO SCH (20:58)
[2020-12-30] MEDS ORDERED: Enoxaparin Sodium 40 MG/0.4 ML SYRINGE SC SCH (21:00)
[2020-12-30] MEDS ORDERED: cefTRIAXone\\ROCEPHIN 1 GM in Sodium Chloride 0.9% 100 ML IVPB SCH (21:00)
[2020-12-31 04:11] LABS: #Eosinphils 0.5 thou/uL (0.0-0.7); #Lymphocytes 1.4 thou/uL (1.20-3.40); #Monocytes 0.7 thou/uL (0.11-0.59); #Neutrophils 5.4 thou/uL (1.40-6.50); %Basophils 0.3 % (0.0-1.0); %Eosinophils 5.8 % (0.0-10.0); %Lymphocytes 18.1 % (21.0-51.0); %Monocytes 8.7 % (0.0-10.0); %Neutrophils 67.1 % (42.0-75.0); Hemoglobin 12.7 g/dL (12.0-16.0); Mean Corpuscular HGB CONC 34.8 g/dL (32.0-36.0); Mean Corpuscular Hemoglobin 35.2 pg (27.0-31.0); Mean Platelet Volume 9.8 fL (7.4-10.4); Platelet Count 150 thou/uL (130-400); RBC Distribution Width 11.9 % (11.5-14.5); Red Blood Cell (RBC) Count 3.61 mill/uL (4.20-5.40)
[2020-12-31 04:28] LABS: Anion Gap 13 mmol/L (10-20); BUN (Urea Nitrogen) 16 mg/dL (9.8-20.1); Calc. Creatinine Clearance 49 mL/min (70-130); Carbon Dioxide 26 mmol/L (23-31); Chloride 104 mmol/L (98-107); Sodium 139 mmol/L (136-145)
[2020-12-31 04:29] LABS: ALT (SGPT) 11 U/L (8-55); AST (SGOT) 25 U/L (5-34); Albumin 3.3 g/dL (3.4-4.8); Alkaline Phosphatase 64 U/L (40-110); Bilirubin, Total 0.7 mg/dL (0.2-1.2); Calcium 8.8 mg/dL (7.8-10.44); Cardiac Risk 2.5 (Less than 4.5); Cholesterol 172 mg/dl (< 200 Desired); Globulin 2.3 g/dL (2.4-3.5); Glucose 105 mg/dL (83-110); HDL Cholesterol 70 mg/dL (>60 Neg Risk); LDL Cholesterol, Calculated 82 mg/dL; Protein, Total 5.6 g/dL (5.8-8.1); Triglycerides 98 mg/dL (Less than 150)
[2020-12-31] MEDS: Heparin 10,000 UNITS/ 10 ML VIAL SLOW IVP SCH ×2 (04:51→20:23)
[2020-12-31] MEDS: Aspirin Chewable 81 MG TAB PO SCH (09:41)
[2020-12-31] MEDS: Digoxin 0.125 MG TAB PO SCH (09:41)
[2020-12-31] MEDS: Midodrine HCl 5 MG TAB PO SCH ×2 (09:41→20:29)
[2020-12-31] MEDS: busPIRone HCl 5 MG TAB PO SCH ×2 (09:42→20:29)
[2020-12-31] MEDS: Clopidogrel Bisulfate 75 MG TAB PO SCH (09:42)
[2020-12-31] MEDS: Furosemide 20 MG TAB PO SCH (09:42)
[2020-12-31 11:52] LABS: PTT 115.3 sec (22.9-36.1)
[2020-12-31] MEDS ORDERED: Nitrofurantoin Monohyd/M-Cryst 100 MG CAP PO SCH (12:00)
[2020-12-31] MEDS: Nitrofurantoin Monohyd/M-Cryst 100 MG CAP PO SCH (20:30)
[2020-12-31] MEDS: Rosuvastatin 10 MG TAB PO SCH (20:30)
[2021-01-01 02:22] LABS: Hemoglobin 12.8 g/dL (12.0-16.0); Platelet Count 166 thou/uL (130-400)
[2021-01-01] MEDS: Aspirin Chewable 81 MG TAB PO SCH (09:04)
[2021-01-01] MEDS: Digoxin 0.125 MG TAB PO SCH (09:04)
[2021-01-01] MEDS: Furosemide 20 MG TAB PO SCH (09:04)
[2021-01-01] MEDS: busPIRone HCl 5 MG TAB PO SCH ×2 (09:04→21:04)
[2021-01-01] MEDS: Clopidogrel Bisulfate 75 MG TAB PO SCH (09:04)
[2021-01-01] MEDS: Nitrofurantoin Monohyd/M-Cryst 100 MG CAP PO SCH (09:04)
[2021-01-01] MEDS: Midodrine HCl 5 MG TAB PO SCH ×2 (09:04→21:05)
[2021-01-01] MEDS: Rosuvastatin 10 MG TAB PO SCH (21:06)
[2021-01-02] MEDS: busPIRone HCl 5 MG TAB PO SCH ×2 (09:07→21:35)
[2021-01-02] MEDS: Furosemide 20 MG TAB PO SCH (09:08)
[2021-01-02] MEDS: Aspirin Chewable 81 MG TAB PO SCH (09:08)
[2021-01-02] MEDS: Midodrine HCl 5 MG TAB PO SCH ×2 (09:08→21:35)
[2021-01-02] MEDS: Clopidogrel Bisulfate 75 MG TAB PO SCH (09:08)
[2021-01-02] MEDS: Digoxin 0.125 MG TAB PO SCH (09:13)
[2021-01-02] MEDS: Rosuvastatin 10 MG TAB PO SCH (21:36)
[2021-01-03 01:57] LABS: Platelet Count 151 thou/uL (130-400)
[2021-01-03] MEDS: Midodrine HCl 5 MG TAB PO SCH (10:08)
[2021-01-03] MEDS: busPIRone HCl 5 MG TAB PO SCH (10:08)
[2021-01-03] MEDS: Clopidogrel Bisulfate 75 MG TAB PO SCH (10:08)
[2021-01-03] MEDS: Aspirin Chewable 81 MG TAB PO SCH (10:08)
[2021-01-03] MEDS: Furosemide 20 MG TAB PO SCH (10:09)
[2021-01-03] MEDS: Digoxin 0.125 MG TAB PO SCH (10:09)
[2021-01-03 13:33] VITALS: BP 101/56; TEMP 98.1
[2021-01-05] MEDS ORDERED: Ergocalciferol 1.25 MG(50,000 UNITS) CAP PO SCH (09:00)
== END 2021-01-03 12:55 | disposition home or self-care (01) | DRG 281 ==
LOC: ERS 14:03 → ERHOLD 22:16 → OBSVTOIN 12-30 01:26 → 2NO 12-30 13:47
PROVIDERS: ADMIT Emergency Medicine; ATTEND Emergency Medicine
DX: I21.4 Non-ST elevation (NSTEMI) myocardial infarction (principal); N39.0 Urinary tract infection, site not specified; I50.32 Chronic diastolic (congestive) heart failure; Z66 Do not resuscitate; Z20.822 Contact with and (suspected) exposure to COVID-19; I34.0 Nonrheumatic mitral (valve) insufficiency; I11.0 Hypertensive heart disease with heart failure; F31.9 Bipolar disorder, unspecified; R19.7 Diarrhea, unspecified; I48.0 Paroxysmal atrial fibrillation; Z85.3 Personal history of malignant neoplasm of breast; Z90.710 Acquired absence of both cervix and uterus; Z90.49 Acquired absence of other specified parts of digestive tract; Z87.440 Personal history of urinary (tract) infections; Z79.899 Other long term (current) drug therapy; Z79.82 Long term (current) use of aspirin; Z79.01 Long term (current) use of anticoagulants
CPT/HCPCS: 36415; 51702; 70450; 72125; 80053; 80061; 81003; 81015; 84484; 85014; 85018; 85025; 85049; 85610; 85730; 87077; 87086; 87186; 93005; 93010; 93306; 93798; 94760; 96365; 97139; G0378; J0696; J1644; J3490; U0002

== ENCOUNTER 2021-03-20 10:26 | Outpatient (CLI) | payer MEDICARE, OTHER | END 2021-03-20 10:27 | disposition home or self-care (01) | LOC: BICRAD 10:26 | PROVIDERS: ATTEND Urology | DX: N39.41 Urge incontinence (principal); N32.3 Diverticulum of bladder; R33.9 Retention of urine, unspecified | CPT/HCPCS: 74018 ==